=== PATIENT | female | born 1965 | race Caucasian/White ===

== ENCOUNTER 2022-09-05 09:41 | Emergency (ER) | payer MEDICARE, MEDICAID, OTHER, SELFPAY ==
--- NOTE | ~2022-09-05 | XR_ITS ---
EXAMINATION: XR SHOULDER, LEFT CLINICAL INFORMATION: Fall. COMPARISON: None available. TECHNIQUE: AP external rotation, Grashey, scapular Y, and axillary views of the left shoulder. FINDINGS: There is a transverse fracture through the left femoral neck with mild displacement. There is loss of glenohumeral joint space with subchondral cystic changes of the humeral head consistent with degenerative arthritic changes. There is soft tissue calcification superior to the humeral head likely old fracture fragment or dystrophic calcification. XR/XR shoulder LT min 2V IMPRESSION: 1. Transverse fracture left humeral neck with mild displacement. 2. Degenerative arthritic changes left glenohumeral joint. 3. There is soft tissue calcification superior to humeral head likely old fracture fragment or dystrophic calcification.
[2022-09-05 10:01] VITALS: BP 119/93; PULSE 112; RESP 18; TEMP 36.6; O2SAT 98; BMI 18.6
[2022-09-05] MEDS: Morphine Sulfate 4 MG/ML CARTRIDGE IM (11:52)
--- NOTE | 2022-09-05 13:29 | ED.EXTPRO ---
HPI - Extremity Problem General Chief complaint: Extremity Injury, Upper Stated complaint: L Shoulder Pain ? Fx S/P Fall 09/05/22 Time Seen by Provider: 09/05/22 11:26 History of Present Illness HPI Narrative: patient complains of left shoulder injury after a fall today, no other injury no, no muscle weakness no loss of sensation no head injury no neck pain no back pain no other extremity pains Related Data Previous Rx's Medication Instructions Recorded acetaminophen 500 mg tablet 1,000 mg PO QID PRN pain #30 tabs 09/05/22 morphine 15 mg immediate release 15 mg PO TID PRN pain #10 tabs 09/05/22 tablet Allergies Allergy/AdvReac Type Severity Reaction Status Date / Time Hard-shell nuts Allergy Unknown anaphylaxis Uncoded 09/05/22 10:01 IVP dye Allergy Unknown severe Uncoded 09/05/22 10:01 itching PMFSH Past Medical History Source: nursing notes reviewed Social History Social History Alcohol intake: unknown Smoked in Last 30 Days: Yes Use of substances other than those prescribed or required for medical reasons: No Advance Directives: No Advance Directives Information Provided: Yes Physical Exam Vital Signs: Vital Signs: Last Vital Signs Temp 99.1 F 09/05/22 14:07 Pulse 110 H 09/05/22 14:07 Resp 17 09/05/22 14:07 BP 98/81 09/05/22 14:07 Pulse Ox 100 09/05/22 14:07 O2 Del Method Room Air 09/05/22 14:07 BMI result Body Mass Index 18.6 general appearance is no acute distress Head is normocephalic atraumatic Neck is supple nontender The back has full range of motion Chest wall nontender Extremities the left shoulder is held in internal rotation it is swollen with mild ecchymosis and lots of tenderness around the proximal humerus and the left shoulder region, arm is neurovascular intact distal with no muscle weakness or loss of sensation, pulse is normal Other extremities normal Course Reevaluation(s) Reevaluation #1: x-ray showed a transverse fracture mildly displaced of the left humeral neck there were some arthritic changes as well Patient is given pain medicine and a sling and will follow with orthopedist for further evaluation of her fracture, she ambulated easily from the emergency room Medications Administered Discontinued Medications Generic Name Dose Route Start Last Admin Trade Name Freq PRN Reason Stop Dose Admin Morphine Sulfate 4 mg 09/05/22 11:33 09/05/22 11:52 Morphine Sulfate 4 Mg/Ml Cartridge IM 09/05/22 11:34 4 mg ONCE ONE Administration Protocol Morphine Sulfate 2 mg 09/05/22 13:45 09/05/22 13:55 Morphine Sulfate 2 Mg/Ml Cartridge IM 09/05/22 13:46 Not Given ONCE ONE Protocol Discharge Plan Discharge Clinical Impression: Fracture of left shoulder Patient Disposition: Home, Self-Care Additional Instructions: follow closely with orthopedist for evaluation of left shoulder fracture Return any time any worse condition or any concerns Prescriptions: New morphine 15 mg tablet 15 mg PO TID PRN (Reason: pain) Qty: 10 0RF Rx Instructions: Partial Fill upon patient request. acetaminophen 500 mg tablet 1,000 mg PO QID PRN (Reason: pain) Qty: 30 0RF Referrals: Pablo Alvarenga MD [Physician] - ( left shoulder fracture) Interventions: ED Discharge Assessment Last Done: 09/05/22 14:13 Discharge Date/Time: 09/05/22 14:13
[2022-09-05 14:07] VITALS: BP 98/81; PULSE 110; RESP 17; TEMP 37.3; O2SAT 100
== END 2022-09-05 14:13 | disposition home or self-care (01) ==
PROVIDERS: Emergency Provider Emergency Medicine Emergency Medical Services; PCP Family Medicine
DX: S42.202A Unspecified fracture of upper end of left humerus, initial encounter for closed fracture (principal); W19.XXXA Unspecified fall, initial encounter; Y93.9 Activity, unspecified; Y92.9 Unspecified place or not applicable; Y99.9 Unspecified external cause status
CPT/HCPCS: 73030; 96372; 99283; 99284; J2270

== ENCOUNTER 2023-04-16 06:46 | Emergency (ER) | payer MEDICARE, MEDICAID, SELFPAY ==
--- NOTE | ~2023-04-16 | XR_ITS ---
EXAMINATION: XR CHEST 2 VIEW XR THORACIC SPINE CLINICAL INFORMATION: Upper back pain. COMPARISON: Radiographs of left shoulder from 09/05/2022 TECHNIQUE: Chest, PA and lateral views Thoracic spine, 2 views FINDINGS: CHEST: Lungs are well expanded. Somewhat vague irregular opacity projects over the right anterior fourth rib on the frontal radiograph. However, since no upper lobe consolidation is seen on the lateral view, it is uncertain if this patient has an acute airspace disease process. No pleural effusion or pneumothorax. Cardiac silhouette is normal in size. The descending thoracic aorta is tortuous. The hilar contours are normal. There is intact anterior fusion hardware of the partially visualized cervical spine. Old fracture deformity of the left humeral neck is partially included in the [id number]. Old healed fracture of left lateral eighth rib. Cholecystectomy clips in the right upper quadrant the abdomen. THORACIC SPINE: There has been cement augmentation of the T9 vertebral body which appears to be chronically compressed, approximately 30% anterior height loss. Also, there appears to be chronic mild anterior compression deformity of the T8 vertebral body which also exhibits approximately 30% anterior height loss. There is minimal anterior height loss of other thoracic vertebra and hyperkyphosis of the degenerated thoracic spine. The osteophytes of the spine are largest in the visualized upper lumbar spine. No suspicious bone lesions. XR/XR thoracic spine 3V IMPRESSION: * An abnormal, irregular opacity projecting over the right anterior fourth rib on the frontal radiograph is difficult to further characterize. If the patient does not have any comparison chest imaging exams at other facilities, then consider chest CT follow-up for a more definitive assessment. Alternatively, if the patient clinically has pneumonia, then obtain PA/lateral CXR follow-up in 4-6 weeks to ensure resolution of this opacity. * Prior cement augmentation of T9 vertebral body. There appears to be chronic anterior height loss of T8 and T9 vertebra. No radiographic evidence of acute fractures.
--- NOTE | ~2023-04-16 | XR_ITS ---
EXAMINATION: XR CHEST 2 VIEW XR THORACIC SPINE CLINICAL INFORMATION: Upper back pain. COMPARISON: Radiographs of left shoulder from 09/05/2022 TECHNIQUE: Chest, PA and lateral views Thoracic spine, 2 views FINDINGS: CHEST: Lungs are well expanded. Somewhat vague irregular opacity projects over the right anterior fourth rib on the frontal radiograph. However, since no upper lobe consolidation is seen on the lateral view, it is uncertain if this patient has an acute airspace disease process. No pleural effusion or pneumothorax. Cardiac silhouette is normal in size. The descending thoracic aorta is tortuous. The hilar contours are normal. There is intact anterior fusion hardware of the partially visualized cervical spine. Old fracture deformity of the left humeral neck is partially included in the [id number]. Old healed fracture of left lateral eighth rib. Cholecystectomy clips in the right upper quadrant the abdomen. THORACIC SPINE: There has been cement augmentation of the T9 vertebral body which appears to be chronically compressed, approximately 30% anterior height loss. Also, there appears to be chronic mild anterior compression deformity of the T8 vertebral body which also exhibits approximately 30% anterior height loss. There is minimal anterior height loss of other thoracic vertebra and hyperkyphosis of the degenerated thoracic spine. The osteophytes of the spine are largest in the visualized upper lumbar spine. No suspicious bone lesions. XR/XR chest 2V IMPRESSION: * An abnormal, irregular opacity projecting over the right anterior fourth rib on the frontal radiograph is difficult to further characterize. If the patient does not have any comparison chest imaging exams at other facilities, then consider chest CT follow-up for a more definitive assessment. Alternatively, if the patient clinically has pneumonia, then obtain PA/lateral CXR follow-up in 4-6 weeks to ensure resolution of this opacity. * Prior cement augmentation of T9 vertebral body. There appears to be chronic anterior height loss of T8 and T9 vertebra. No radiographic evidence of acute fractures.
--- NOTE | ~2023-04-16 | NM_ITS ---
EXAMINATION: PULMONARY PERFUSION STUDY CLINICAL INFORMATION: Pleuritic back pain abnormality seen on x-ray. Unable to get CTA. Rule out pulmonary embolism. COMPARISON: No previous lung scan is available for comparison. Radiographs of the chest dated 04/16/[address] scan of the chest on the same date, the same date as this lung scan, are available for comparison. TECHNIQUE: Following the intravenous administration of 4.0 mCi Tc-99m MAA an 8-view perfusion study was performed using a dual detector gamma scintillation camera. No ventilation images were obtained. FINDINGS: Perfusion images: No segmental perfusion abnormalities are present. There is a nonsegmental region of moderately decreased activity present laterally in the base of the right upper lobe that appears to abut the lateral aspect of the horizontal fissure. Although the activity in this region is significantly decreased, it does not appear to be absent. No other perfusion abnormalities are present in either lung. The contemporaneous CT scan shows a groundglass airspace appearing opacity laterally in the base of the right upper lobe abutting the horizontal fissure that is very well matched to the perfusion abnormality described above. This is also visualized on the contemporaneous chest radiographs. NM/NM pul perfusion IMPRESSION: Very low probability of pulmonary embolism. There is a perfusion abnormality present in the lateral base of the right upper lobe that is well matched to opacities in this region on the contemporaneous CT scan. These findings are most consistent with a pneumonitis at this site. The CT abnormalities appear more extensive than the perfusion lung scan abnormality. Clinical correlation is recommended.
--- NOTE | ~2023-04-16 | CT_ITS ---
EXAMINATION: CT CHEST WITHOUT CONTRAST CLINICAL INFORMATION: Abnormal chest x-ray pleuritic back pain. COMPARISON: Chest x-ray performed earlier today at 8:42 AM TECHNIQUE: Multidetector volumetric CT imaging of the chest was done. Axial MIP volume rendering provided. Sagittal and coronal reformatted images were obtained. This CT examination was performed using dose optimization techniques as appropriate, variously including the following: *Automated exposure control *Adjustment of mA and/or kV according to patient size (this includes techniques or standardized protocols for targeted exams where dose is matched to indication/reason for exam; i.e. 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 LUNGS: The lungs are hyperinflated with mild groundglass opacity involving a significant segment of the right upper lobe posterior segment with patchy parenchymal scattered opacity within this abnormal segment more suggestive of infiltrative process. Rest of the lungs are expanded and clear. Mild atelectatic changes are seen in the lingula and both lung bases. MEDIASTINUM: Thyroid lobes are symmetrical and normal. The central trachea and the bronchi widely patent. The heart size and the great vessels are normal caliber. No abnormal size mediastinal or hilar lymph nodes seen. There is no pericardial effusion. The central trachea and the bronchi widely patent. CORONARY ARTERY CALCIFICATION: There is mild coronary artery calcification present. PLEURA: There is no pleural effusion. No pleural mass or thickening. AXILLA: No lymphadenopathy. UPPER ABDOMEN: Visualized liver, spleen, pancreas and bilateral adrenal glands are unremarkable. Gallbladder has been surgically removed. OSSEOUS STRUCTURES: There is mild exaggerated thoracic kyphosis with T9 cement augmentation of compression fracture. CT/CT chest wo IV con IMPRESSION: Hyperinflated lungs with right upper lobe 0% developing infiltrate. Mild atelectatic changes both lung bases and lingula. Fleischner guidelines were followed.
[2023-04-16 07:28] VITALS: BP 149/90; PULSE 98; RESP 16; TEMP 37.1; O2SAT 98; BMI 19.6
--- NOTE | 2023-04-16 07:52 | ECG_ITS ---
Test Reason : back pain Blood Pressure : / mmHG Vent. Rate : 089 BPM Atrial Rate : 089 BPM P-R Int : 120 ms QRS Dur : 078 ms QT Int : 388 ms P-R-T Axes : 108 145 127 degrees QTc Int : 472 ms Suspect limb lead reversal, interpretation assumes no reversal Normal sinus rhythm Right axis deviation Abnormal ECG No previous ECGs available Referred By: Shayna Santana Electronically Signed By:Lawrence Ramos
--- NOTE | 2023-04-16 07:59 | ED_ITS ---
HPI - Back Pain/Injury General Chief Complaint: Back Pain/Injury Stated Complaint: back pain Time Seen by Provider: 04/16/23 07:45 Source: patient, RN notes reviewed and old records reviewed Mode of arrival: ambulatory History of Present Illness HPI Narrative: 58-year-old female with a past medical history ACS, HTN, presenting to the ED complaining of upper back pain between shoulder blades x1 week. Admits PCP ordered outpatient x-rays which were done on 04/13 at [facility] however patient does not know results. Denies direct injury/trauma or fall. Admits to taking Tylenol and Soma at home without relief. Reports pain worse with movement/palpation & breathing. Denies chest pain/shortness of breath, incontinence/retention, dysuria/hematuria, weakness MD elicited complaint: back pain Related Data Previous Rx's Medication Instructions Recorded acetaminophen 500 mg tablet 1,000 mg (2 x 500 mg) PO QID PRN 09/05/22 pain #30 tabs morphine 15 mg immediate release 15 mg PO TID PRN pain #10 tabs 09/05/22 tablet acetaminophen 500 mg tablet 500 mg PO Q6H PRN fever or pain 04/16/23 (Tylenol Extra Strength) #14 tabs amoxicillin 500 mg-potassium 1 tab PO BID 7 days #14 tabs 04/16/23 clavulanate 125 mg tablet (Augmentin) azithromycin 250 mg tablet See Rx Instructions PO .COMPLEX #6 04/16/23 tabs lidocaine 5 % topical patch 1 patch topical DAILY PRN pain #30 04/16/23 (Lidoderm) ea morphine 15 mg immediate release 15 mg PO Q8H PRN pain (scale score 04/16/23 tablet 7-10) 3 days #6 tabs Allergies Allergy/AdvReac Type Severity Reaction Status Date / Time Hard-shell nuts Allergy Unknown anaphylaxis Uncoded 04/16/23 07:28 IVP dye Allergy Unknown severe Uncoded 04/16/23 07:28 itching Review of Systems 2 Review of Systems: Constitutional: No Fever, No Chills ENT/Mouth: No Ear Pain, No Nasal Congestion, No sore throat, No Rhinorrhea, No Swallowing Difficulty Cardiovascular: No Chest Pain, No SOB Respiratory: No Cough, No Sputum Gastrointestinal: No Nausea, No Vomiting, No Diarrhea, No Constipation, No Abdominal pain Genitourinary: No Dysuria, No Urinary Frequency, No Hematuria, No Urinary Incontinence/retention, No Flank Pain Musculoskeletal: + joint pain, No Myalgias, No Joint Swelling Skin: No Skin Lesions, No rash Neuro: No Weakness, No Numbness, No Paresthesias Yes all other systems are reviewed and are negative Constitutional: Constitutional: Reports as per [facility] Past Medical History Attestation statement: The following information was validated with the patient. Source: old records reviewed Onset Date is defined in the Problem List Problems that require an onset date and time if occurred within 24 hrs of arrival to the ED Aortic Dissection and Rupture; Neurologic impairment; Cardiopulmonary Arrest; Endotracheal Intubation; Insertion or Replacement of Mechanical Circulatory Assist Device Social History Social History Alcohol intake: unknown Smoked in Last 30 Days: Yes Use of substances other than those prescribed or required for medical reasons: No Advance Directives: No Advance Directives Information Provided: Yes Patient : Yes Physical Exam 2 Vital Signs: Vital Signs: Last Vital Signs Temp 98.2 F 04/16/23 09:39 Pulse 90 04/16/23 12:15 Resp 16 04/16/23 12:15 BP 149/92 H 04/16/23 12:15 Pulse Ox 100 04/16/23 12:15 O2 Del Method Room Air 04/16/23 12:15 BMI result Body Mass Index 19.6 Const: General: cooperative, healthy appearing and no acute distress O rientation/consciousness: patient oriented x3 Limitations: no limitations HEENT: Head: Yes normal to inspection and Yes atraumatic Ears: hearing grossly normal bilaterally General nose exam: Normal external nose present Face and sinus: Yes normal facial exam Eyes: General: appearance normal, both eyes and all related structures EOM: EOMs intact bilaterally Neck: Neck: Yes normal visual inspection and Yes no meningeal signs Chest: Chest palpation & inspection: normal inspection of the chest Resp: Effort & Inspection: normal respiratory effort and no respiratory distress Auscultation: clear to auscultation bilaterally Cardio: Rate: regular rate Heart sounds: S1 normal heart sound present and S2 normal heart sound present GI: Inspection: Yes normal to inspection Palpation (GI): Soft to palpation, nontender, no guarding and not rigid : General: Yes no CVA tenderness Back/Spine/Pelvis: Other: No midline cervical/thoracic/lumbar spinous tenderness/step-off or deformity. + bilateral thoracic paraspinal and MSK reproducible tenderness to palpation. No flail chest. No erythema/ecchymosis or rash. No crepitus Back: no CVA tenderness Skin: Rashes: no rashes Wounds: no wounds Neuro: Other: Strength intact throughout. No saddle anesthesia. Sensation intact to light touch. Neurovascular intact distally General: patient oriented x3, gait normal, tone normal, moves all extremities and no meningeal signs Cranial nerves: Yes CN's II-XII intact bilaterally Gait exam (Neuro): Normal gait present Motor exam (neuro): 5/5 motor strength present throughout Extrem: General: Yes normal to inspection Course Course Course Narrative: XR thoracic spine 3V/XR chest 2V IMPRESSION: * An abnormal, irregular opacity projecting over the right anterior fourth rib on the frontal radiograph is difficult to further characterize. If the patient does not have any comparison chest imaging exams at other facilities, then consider chest CT follow-up for a more definitive assessment. Alternatively, if the patient clinically has pneumonia, then obtain PA/lateral CXR follow-up in 4-6 weeks to ensure resolution of this opacity. * Prior cement augmentation of T9 vertebral body. There appears to be chronic anterior height loss of T8 and T9 vertebra. No radiographic evidence of acute fractures. > due to patient's pleuritic symptoms and need for CT will obtain CTA to r/o PE. Labs also ordered. -1224--unable to obtain CTA due to renal fxn & patients listed allergy > will obtain dry CT & NM study -no leukocytosis. Mildly anemic, no priors to compare. Patient w/known CKD (she does not know #'s), BUN 27, creatinine 1.69 (no priors to compare in our system) >> requested records from [facility] specifically asking for renal function however we were sent the same results twice which did not include BMP -potassium 5.3 > 10gm Lokelmo ordered 1505--CT chest wo IV con IMPRESSION: Hyperinflated lungs with right upper lobe 0% developing infiltrate. Mild atelectatic changes both lung bases and lingula. Fleischner guidelines were followed. > low suspicion for severe sepsis. Will obtain blood cultures & Give PO Abx NM pul perfusion IMPRESSION: Very low probability of pulmonary embolism. There is a perfusion abnormality present in the lateral base of the right upper lobe that is well matched to opacities in this region on the contemporaneous CT scan. These findings are most consistent with a pneumonitis at this site. The CT abnormalities appear more extensive than the perfusion lung scan abnormality. Clinical correlation is recommended. >> results discussed with patient, does not meet admission criteria at this time without hypoxia, ambulating with steady gait, symptoms have been for about 2 weeks. Feels comfortable and safe for discharge home with oral antibiotics and close follow-up Results discussed with patient including worrisome signs and symptoms and strict return precautions, and when to return to the emergency department. They verbalized understanding and feel safe for discharge at this time. Medications Administered Discontinued Medications Generic Name Dose Route Start Last Admin Trade Name Freq PRN Reason Stop Dose Admin Acetaminophen 650 mg 04/16/23 13:32 04/16/23 13:39 Acetaminophen 325 Mg Tablet PO 04/16/23 13:33 650 mg ONCE ONE Administration Fentanyl 25 mcg 04/16/23 11:33 04/16/23 12:14 Fentanyl Citrate/Pf 100 Mcg/2 Ml Vial IVPUSH 04/16/23 11:34 25 mcg ONCE ONE Administration Protocol Lidocaine 1 patch 04/16/23 08:02 04/16/23 08:27 Lidocaine 4 % Patch Adh..Patch TRANSDERMA 04/16/23 08:03 1 patch ONCE ONE Administration Protocol Morphine Sulfate 15 mg 04/16/23 08:02 04/16/23 08:27 Morphine Sulfate Immed Release 15 Mg Tablet PO 04/16/23 08:03 15 mg ONCE ONE Administration Morphine Sulfate 15 mg 04/16/23 13:32 04/16/23 13:39 Morphine Sulfate Immed Release 15 Mg Tablet PO 04/16/23 13:33 15 mg ONCE ONE Administration Medical Decision Making Medical Decision Making MDM Narrative: 58-year-old female with a past medical history ACS, HTN, presenting to the ED complaining of upper back pain between shoulder blades x1 week. On exam vital signs stable, NAD, nontoxic appearing, physical exam as noted above without midline spinous tenderness or red flag symptoms. Reproducible tenderness, and pain worse with movement. Concern for MSK pain/strain vs ? Pneumonia. Lower suspicion for PE at this time. Fracture Plan: Request [facility] x-ray records, chest x-ray, pain control, re-evaluate Please refer to course for remaining clinical decision making, interpretation of labs/imaging results, and discussions with consultants and/or family members. Differential Diagnosis Differential Diagnoses: The differential diagnosis associated with the presentation includes As above Admission/Observation Consideration of admission/observation: Escalation of care including admission/observation considered Lab Data MDM Lab Attestation statement: I reviewed the patient's lab results. 04/16/23 10:13 04/16/23 11:46 Labs: Lab Results 04/16/23 04/16/23 Range/Units 10:13 11:46 WBC 7.7 (4.8-10.8) X10*3/uL RBC 3.45 L (4.20-5.50) X10*6/uL Hgb 10.5 L (12.0-16.0) g/dl Hct 34.1 L (37.0-47.0) % MCV 98.8 H (80.0-98.0) fL MCH 30.4 (27.0-33.0) pg MCHC 30.8 L (31.0-35.0) g/dl RDW 15.1 (11.0-16.0) % Plt Count 246 (160-400) X10*3/uL MPV 10.8 (9.4-12.3) fL Immature Gran % (Auto) 0.5 H (0.0-0.4) % Neut % (Auto) 72.1 (45-73) % Lymph % (Auto) 16.7 L (20-40) % Owen % (Auto) 7.6 (2-11) % Eos % (Auto) 2.2 (0-4) % Baso % (Auto) 0.9 (0-2) % Lymph # (Auto) 1.3 (1.2-4.9) X10*3/uL Owen # (Auto) 0.6 (0.1-1.2) X10*3/uL Eos # (Auto) 0.2 (0.0-0.4) X10*3/uL Baso # (Auto) 0.1 (0.0-0.2) X10*3/uL Abs Immat Gran (auto) 0.04 H (0.00-0.03) X10*3/uL Absolute Neuts (auto) 5.5 (2.0-8.3) x10*3/uL Absolute Nucleated RBC 0.000 (0.0-0.012) X10*3/uL Nucleated RBC % (auto) 0.0 (0.0-0.2) /100WBC PT 10.7 L (11.1-13.3) SEC INR 0.9 (0.9-1.1) Sodium 142 (135-145) mmol/L Potassium 5.3 H (3.3-5.1) mmol/L Chloride 114 H (96-108) mmol/L Carbon Dioxide 20 L (22-29) mmol/L Anion Gap 13 (12-20) BUN 27 H (9-16) mg/dL Creatinine 1.69 H (0.5-1.4) mg/dL Estim Creat Clear Calc 25.4 Estimated GFR 31 Random Glucose 107 (60-115) mg/dL Calcium 9.8 (8.4-10.2) mg/dL Troponin I High Sens < 2.7 (<3.5-17.0) ng/L Independent Interpretation I performed an independent interpretation of an: EKG (My interpretation EKG normal sinus rhythm rate of 89. No STEMI. Artifact present. No previous to compare. Machine suspects limb lead reversal however verified with Nursing leads were not reversed ) and Plain X-Ray Radiology Impression Discussion of test interpretation with radiology: I have reviewed the radiologist's reading. External Record Review External record reviewed: Inpatient record, Office record, Outpatient record, Prior outpatient labs, Prior outpatient radiology, Primary care record and Outside ED record Tests considered The following testing was considered but not selected: As above Prescription Management I considered prescription management with: Pain Medication Social Determinants Patient?s care significantly limited by Social Determinants of Health including: Alcoholism and drug addiction in family Critical Care Time Critical Care Time Critical Care Time: Yes Total Critical Care Time: 35 Attestation: I have personally provided critical care time exclusive of time spent on separately billable procedures. Time includes review of lab data, radiology results, discussion with consultants, and monitoring for potential decompensation. Intervention performed as documented. Discharge Plan Discharge Clinical Impression: Pneumonia Patient Disposition: Home, Self-Care Instructions: Community Acquired Pneumonia (DC) Additional Instructions: You have a significant pneumonia in your right upper lobe. This is likely causing her pain Augmentin and azithromycin are antibiotics please take as prescribed Your potassium was mildly high, you were given medication to bring this down. Your kidney function is also elevated, I know you have chronic kidney disease but please have close follow-up with her doctor and Nephrology in regards to this Continue home prescribed medications In addition morphine is an opiate pain medication, take only when pain is severe for the next 3 days. In addition take Tylenol and use Lidoderm patches follow-up with her doctor If symptoms persist or worsen return to the emergency department Prescriptions: New morphine 15 mg tablet 15 mg PO Q8H PRN (Reason: pain (scale score 7-10)) 3 Days Qty: 6 0RF Rx Instructions: Partial Fill upon patient request. azithromycin 250 mg tablet See Rx Instructions .ROUTE .COMPLEX Qty: 6 0RF Rx Instructions: take 500 mg today (day 1), then 250 mg for 4 days (days 2-5) acetaminophen [Tylenol Extra Strength] 500 mg tablet 500 mg PO Q6H PRN (Reason: fever or pain) Qty: 14 0RF lidocaine [Lidoderm] 5 % adhesive patch,medicated 1 patch topical DAILY MDD remove after 12 hours PRN (Reason: pain) Qty: 30 0RF Rx Instructions: leave on most painful area for up to 12 hrs amoxicillin-pot clavulanate [Augmentin] 500-125 mg tablet 1 tab PO BID 7 Days Qty: 14 0RF No Action morphine 15 mg tablet 15 mg PO TID PRN (Reason: pain) Qty: 10 0RF Rx Instructions: Partial Fill upon patient request. acetaminophen 500 mg tablet 1,000 mg PO QID PRN (Reason: pain) Qty: 30 0RF Referrals: [facility] [Provider Group] Physician,Unknown J [Primary Care Provider] -
[2023-04-16] MEDS: Lidocaine 4 % Patch ADH..PATCH 1 PATCH TRANSDERMA (08:27)
[2023-04-16] MEDS: Morphine Sulfate Immed Release 15 MG TABLET PO ×2 (08:27→13:39)
--- NOTE | 2023-04-16 08:30 | PC.NURSE ---
medication administered per provider order. pt waiting to go to xray at this time.
--- NOTE | 2023-04-16 09:36 | PC.NURSE ---
pt verbalizing pain level stays a t a 9/10 despite medication administration. pt waiting on xray results at this time.
[2023-04-16 09:39] VITALS: BP 143/103; PULSE 91; RESP 16; TEMP 36.8; O2SAT 99
--- NOTE | 2023-04-16 10:18 | PC.NURSE ---
20gIV placed in the right AC - labs drawn and sent to lab. pt waiting for CTA at this time.
[2023-04-16 10:20] LABS: MANUAL DIFF FLAG NO
[2023-04-16 10:27] LABS: INTERNATIONAL NORM RATIO 0.9 (0.9-1.1); Prothrombin Time 10.7 SEC (11.1-13.3)
[2023-04-16 10:29] LABS: Basophils Absolute Auto 0.1 X10*3/uL (0.0-0.2); Basophils Percent Auto 0.9 % (0-2); Eosinophils Absolute Auto 0.2 X10*3/uL (0.0-0.4); Eosinophils Percent Auto 2.2 % (0-4); Hematocrit 34.1 % (37.0-47.0); Hemoglobin 10.5 g/dl (12.0-16.0); Imm Gran Abs Auto 0.04 X10*3/uL (0.00-0.03); Imm Gran Pct Auto 0.5 % (0.0-0.4); Lymphocytes Absolute Auto 1.3 X10*3/uL (1.2-4.9); Lymphocytes Percent Auto 16.7 % (20-40); Mean Corpuscular HGB Conc 30.8 g/dl (31.0-35.0); Mean Corpuscular Hemoglobin 30.4 pg (27.0-33.0); Mean Corpuscular Volume 98.8 fL (80.0-98.0); Mean Platelet Volume 10.8 fL (9.4-12.3); Monocytes Absolute Auto 0.6 X10*3/uL (0.1-1.2); Monocytes Percent Auto 7.6 % (2-11); Neutrophils Absolute Auto 5.5 x10*3/uL (2.0-8.3); Neutrophils Percent Auto 72.1 % (45-73); Platelet Count 246 X10*3/uL (160-400); Red Blood Count 3.45 X10*6/uL (4.20-5.50); Red Cell Distribution Width 15.1 % (11.0-16.0); White Blood Count 7.7 X10*3/uL (4.8-10.8)
[2023-04-16 10:51] LABS: Troponin-I High Sensitivity < 2.7 ng/L (<3.5-17.0)
[2023-04-16 12:08] LABS: Anion Gap 13 (12-20); Blood Urea Nitrogen 27 mg/dL (9-16); Calcium 9.8 mg/dL (8.4-10.2); Carbon Dioxide 20 mmol/L (22-29); Chloride 114 mmol/L (96-108); Creatinine Clr Calc Pharmacy 25.4; Estimated Glomerular Filt Rate 31; Glucose Random 107 mg/dL (60-115); Potassium 5.3 mmol/L (3.3-5.1); Sodium 142 mmol/L (135-145)
[2023-04-16] MEDS: fentaNYL citrate/PF 100 MCG/2 ML VIAL 25 MCG IVPUSH (12:14)
[2023-04-16 12:15] VITALS: BP 149/92; PULSE 90; RESP 16; O2SAT 100
--- NOTE | 2023-04-16 12:18 | PC.NURSE ---
vss and up to date. medication administered per provider order. pt still awaiting CTA at this time.
[2023-04-16] MEDS: Acetaminophen 325 MG TABLET 650 MG PO (13:39)
--- NOTE | 2023-04-16 13:41 | PC.NURSE ---
medication administered per provider order. pt transporting to [employer] at this time.
[2023-04-16] MEDS: Sodium Zirconium Cyclosilicate 10 GM POWD.PACK PO (15:47)
[2023-04-16] MEDS: Azithromycin 500 MG TABLET PO (15:47)
[2023-04-16] MEDS: Amoxicillin/Potassium Clav 500 MG TABLET PO (15:47)
== END 2023-04-16 16:08 | disposition home or self-care (01) ==
PROVIDERS: Physician Assistant; Emergency Provider Emergency Medicine
DX: J18.9 Pneumonia, unspecified organism (principal); N18.9 Chronic kidney disease, unspecified; D64.9 Anemia, unspecified
CPT/HCPCS: 36415; 71046; 71250; 72072; 78580; 80048; 84484; 85025; 85610; 87040; 93005; 96374; 99284; 99285; A9540; J3010

== ENCOUNTER → 2023-04-16 07:52 | Outpatient (BNV) | payer MEDICARE, MEDICAID, SELFPAY | PROVIDERS: Emergency Provider Emergency Medicine; Visit Provider Internal Medicine Cardiovascular Disease | DX: R94.31 Abnormal electrocardiogram [ECG] [EKG] (principal) | CPT/HCPCS: 93010 ==

== ENCOUNTER 2023-04-25 10:49 | Emergency (ER) | payer MEDICARE, MEDICAID, SELFPAY ==
--- NOTE | ~2023-04-25 | XR_ITS ---
EXAMINATION: XR CHEST CLINICAL INFORMATION: Question pneumonia COMPARISON: CT chest from 04/16/2023, chest radiograph from 05/2023 TECHNIQUE: 2 views of the chest were obtained. FINDINGS: Improvement in previously identified groundglass opacity in the right mid to upper lung field. No pneumothorax. Trachea is midline. Cardiac mediastinal silhouette is nonenlarged. No large pleural effusion. Lower cervical spinal hardware. Vertebral augmentation of T9. Chronic fracture deformity of the left humeral neck. Surgical clips right upper abdomen. Soft tissues are unremarkable. XR/XR chest 2V IMPRESSION: Improvement in previously identified groundglass opacity in the right mid to upper lung field.
[2023-04-25 11:28] VITALS: BP 142/94; PULSE 98; RESP 19; TEMP 36.6; O2SAT 99; BMI 18.9
--- NOTE | 2023-04-25 11:30 | ED_ITS ---
HPI - URI/Sore Throat General Chief Complaint: Back Pain/Injury Stated Complaint: upper back shoulder pain Time Seen by Provider: 04/25/23 17:01 Source: patient Mode of arrival: ambulatory Limitations: no limitations History of Present Illness HPI Narrative: 58 year old female with pmhx significant for ACS, HTN, CKD, MDD, etoh use disorder, opioid use disorder on suboxone presents to the ED for evaluation of upper back pain x10 days. Reports pain localized between her shoulder blades. No radiation. Denies injury, fall, or trauma to the back. Denies IVDU. Reports T9 fusion s/p fracture 4 years ago. No complications. She currently receives injections into her right upper back via [facility] however she has not contacted them regarding this pain over the last 10 days. Questionable historian. History is vague and story changes. Patient seen in ED 9 days ago for same symptoms. Unremarkable workup however there was concern for possible pneumonia, discharged home on 2 antibiotics. Reports taking these antibiotics as prescribed. Since visit in ED, pain between her shoulder blades has not improved. She has been taking morphine, Tylenol and using Lidoderm patches without relief. Related Data Previous Rx's Medication Instructions Recorded acetaminophen 500 mg tablet 1,000 mg (2 x 500 mg) PO QID PRN 09/05/22 pain #30 tabs morphine 15 mg immediate release 15 mg PO TID PRN pain #10 tabs 09/05/22 tablet acetaminophen 500 mg tablet 500 mg PO Q6H PRN fever or pain 04/16/23 (Tylenol Extra Strength) #14 tabs amoxicillin 500 mg-potassium 1 tab PO BID 7 days #14 tabs 04/16/23 clavulanate 125 mg tablet (Augmentin) azithromycin 250 mg tablet See Rx Instructions PO .COMPLEX #6 04/16/23 tabs lidocaine 5 % topical patch 1 patch topical DAILY PRN pain #30 04/16/23 (Lidoderm) ea morphine 15 mg immediate release 15 mg PO Q8H PRN pain (scale score 04/16/23 tablet 7-10) 3 days #6 tabs Allergies Allergy/AdvReac Type Severity Reaction Status Date / Time Hard-shell nuts Allergy Unknown anaphylaxis Uncoded 04/25/23 11:28 IVP dye Allergy Unknown severe Uncoded 04/25/23 11:28 itching Review of Systems 2 Review of Systems: Constitutional: No fever, chills, fatigue, night sweats, weight changes ENT/Mouth: No ear pain, hearing loss, nasal congestion, sinus pain, rhinorrhea, sore throat Eyes: No eye pain, swelling, redness, vision changes, discharge Cardio: No chest pain, palpitations, KNOTT, orthopnea, peripheral edema Pulm: No SOB, cough, sputum, wheezing, dyspnea, hemoptysis GI: No nausea, vomiting, hematemesis, abdominal pain, diarrhea, constipation, hematochezia, melena : No irregular bleeding, dysuria, frequency, urgency, hesitancy, hematuria, flank pain, urinary flow changes, urinary incontinence or retention MSK: +back pain, No neck pain, joint pain, myalgias Skin: No lesions, rashes Neuro: No weakness, numbness, paresthesias, LOC, dizziness, headache All other systems reviewed and are negative. [facility] Past Medical History Attestation statement: The following information was validated with the patient. Onset Date is defined in the Problem List Problems that require an onset date and time if occurred within 24 hrs of arrival to the ED Aortic Dissection and Rupture; Neurologic impairment; Cardiopulmonary Arrest; Endotracheal Intubation; Insertion or Replacement of Mechanical Circulatory Assist Device Social History Social History Alcohol intake: unknown Advance Directives: No Advance Directives Information Provided: Yes Physical Exam 2 Vital Signs: Vital Signs: Last Vital Signs Temp 98.3 F 04/25/23 18:01 Pulse 61 04/25/23 18:01 Resp 16 04/25/23 18:01 BP 116/56 L 04/25/23 18:01 Pulse Ox 95 04/25/23 18:01 O2 Del Method Room Air 04/25/23 18:01 BMI result Body Mass Index 18.9 Vital signs stable, afebrile Const: General: cooperative, healthy appearing, comfortable, no acute distress, alert, awake and Physically active Orientation/consciousness: p atient oriented x3 HEENT: Head: Yes normal to inspection, Yes normocephalic and Yes atraumatic Eyes: General: appearance normal, both eyes and all related structures P upils: Pinpoint pupils Neck: Other: + no cervical midline spinous tenderness or step-off deformity. Neck: Yes normal visual inspection, Yes full ROM and Yes no meningeal signs Resp: Effort & Inspection: normal respiratory effort Auscultation: clear to auscultation bilaterally Cardio: Jugular venous distension: no JVD Rate: regular rate Rhythm: r egular rhythm Peripheral pulses: Peripheral pulses 2+ throughout GI: Inspection: Yes normal to inspection and No visible pulsation Palpation (GI): Soft to palpation, nontender, no pulsatile masses and no aortic enlargement : General: Yes no CVA tenderness Back/Spine/Pelvis: Other: + mild midline thoracic tenderness to pa lpation without step off deformity. No palpable mass or fluctuance. No paraspinal muscle tenderness. Back: no CVA tenderness Thoracic/Lumbar Spine: straight leg raise negative bilaterally Skin: General skin exam: no rashes or lesions noted Neuro: Other: Strength 5/5 intact throughout.?No saddle anesthesia.? Sensation intact to light touch.?Neurovascular intact distally.? General: patient oriented x3, gait normal and no meningeal signs Gait exam (Neuro): Normal gait present Deep tendon reflexes (DTR's): Right patellar reflex intensity grade: 2+ and Left patellar reflex intensity grade: 2+ Pupils: Pinpoint: bilateral Extrem: General: Yes normal to inspection Course Course Course Narrative: c/o right upper back pain, 10/10, worse with inspiration. Using muscle relaxer and tylenol 'non-stop'. Last dose 8 am, 1000mg, no relief of pain. Lifting arm up helps with pain. Seen in this ED last saturday started on two antibiotics for question of pneumonia. Antibiotics completed. No improvement in pain. Vapes. Denies cough. Gets injection to right upper back at [facility]. Has not contacted them regarding symptoms. RME: NAD, A&Ox4, SIMENTAL x 4 w/good strength, LS CTA, HR RRR, tenderness right lateral Reevaluation(s) Reevaluation #1: 5259-- mildly anemic, chronic, likely secondary to etoh abuse. Chronic kidney disease. Patient taking flexeril likely contributing to this. No acute electrolyte abnormalities requiring intervention. Potassium corrected from visit 9 days ago. >> CXR shows improvement in previously identified ground-glass opacity in the right mid to upper lung arreola > pneumonia improving with oral antibiotics. T- spine does not show any acute abnormalities. No concern for fracture, disc herniation. 1800-- EKG showing normal sinus rhythm with a rate of 74 beats per minute, QRS 74, QT 428, no acute ischemic changes or ST elevations. No change from EKG obtained 9 days ago. Awaiting trop to r/o acs. > patient now sitting in bed comfortably texting on phone after receiving IV dilaudid. Reports decrease in pain. Awaiting add on labs. BP now soft, will continue to monitor. 1829-- Patient has received both dilaudid and valium for back pain while work up pending. She is now requesting more pain medication. I explained that we gave her a large dose of pain medication approximately 30 minutes ago which helped her pain and that more pain medication is not warranted at this time. After this conversation, patient ambulated with steady gait to the restroom. Patient converses with ED techs while lying comfortably in bed on her phone however when I go in to evaluate the patient, she begins writhing in pain. 1913-- troponin undetectable x2. sed rate slightly elevated to 37 however CRP wnl with no priors to compare to > low concern for acute inflammatory process, likely secondary to recent pneumonia. I do not have a concern for epidural abscess or other given stable vital signs, unremarkable exam, and length of symptoms. likely msk strain vs med seeking behavior. Her BP has now normalized and vitals are still stable. >> Patient lying in bed comfortably eating sand which. Informed patient of unremarkable work up results. She expresses frustration with the lack of explanation for pain. She received morphine on discharge last visit and states that this did not help her pain. I do not feel as though discharging her with more narcotic pain medication is warranted at this time. Offered to send lidocaine patches to pharmacy however patient is declining. Patient has remained stable throughout ED and BP has normalized. Discussed worrisome signs and symptoms of when to return. Patient is stable for discharge. Medications Administered Discontinued Medications Generic Name Dose Route Start Last Admin Trade Name Jeanine PRN Reason Stop Dose Admin Acetaminophen 650 mg 04/25/23 14:49 04/25/23 14:52 Acetaminophen 325 Mg Tablet PO 04/25/23 14:50 650 mg ONCE ONE Administration Diazepam 2 mg 04/25/23 17:45 04/25/23 18:02 Diazepam 2 Mg Tablet PO 04/25/23 17:46 2 mg ONCE ONE Administration Hydromorphone HCl 0.5 mg 04/25/23 17:11 04/25/23 17:29 Hydromorphone Hcl 0.5 Mg/0.5 Ml Syringe IVPUSH 04/25/23 17:12 0.5 mg ONCE ONE Administration Protocol Medical Decision Making Medical Decision Making [facility] Narrative: 58 year old female with pmhx significant for ACS, HTN, CKD, MDD, etoh use disorder, opioid use disorder on suboxone presents to the ED for evaluation of upper back pain x10 days. Patient hypertensive. Afebrile. Vital signs WNL. Patient ambulating with steady gait into room, and now standing hunched over exam bed groaning in pain. Occasionally slurring speech. Exam nonfocal. Lungs are CTA bilaterally. RRR. There is minimal midline thoracic spinous tenderness to palpation, no step-off deformity, no palpable masses or fluctuance. 2+ patellar DTRs bilaterally. 2+ DP/PT pulses bilaterally. No saddle anesthesia. Strength 5/5 throughout. Ambulating with steady gait. Concern for MSK sprain/strain, fracture, pneumonia. Lower suspicion for arrhythmia, ACS however will rule out. Unlikely PE. Unlikely cord compression, cauda equina, Guillain- Serena, epidural abscess. Plan for imaging, labs, and pain control. Differential Diagnosis Differential Diagnoses: The differential diagnosis associated with the presentation includes as above Admission/Observation Not indicated. Lab Data [facility] Lab Attestation statement: I reviewed the patient's lab results. as above. 04/25/23 13:20 04/25/23 13:20 Labs: Lab Results 04/25/23 04/25/23 Range/Units 13:20 18:11 WBC 8.9 (4.8-10.8) X10*3/uL RBC 3.24 L (4.20-5.50) X10*6/uL Hgb 9.8 L (12.0-16.0) g/dl Hct 32.4 L (37.0-47.0) % MCV 100.0 H (80.0-98.0) fL MCH 30.2 (27.0-33.0) pg MCHC 30.2 L (31.0-35.0) g/dl RDW 14.8 (11.0-16.0) % Plt Count 239 (160-400) X10*3/uL MPV 9.5 (9.4-12.3) fL Immature Gran % (Auto) 0.9 H (0.0-0.4) % Neut % (Auto) 68.2 (45-73) % Lymph % (Auto) 19.6 L (20-40) % Calhoun % (Auto) 5.7 (2-11) % Eos % (Auto) 4.8 H (0-4) % Baso % (Auto) 0.8 (0-2) % Lymph # (Auto) 1.7 (1.2-4.9) X10*3/uL Calhoun # (Auto) 0.5 (0.1-1.2) X10*3/uL Eos # (Auto) 0.4 (0.0-0.4) X10*3/uL Baso # (Auto) 0.1 (0.0-0.2) X10*3/uL Abs Immat Gran (auto) 0.08 H (0.00-0.03) X10*3/uL Absolute Neuts (auto) 6.1 (2.0-8.3) x10*3/uL Absolute Nucleated RBC 0.000 (0.0-0.012) X10*3/uL Nucleated RBC % (auto) 0.0 (0.0-0.2) /100WBC ESR 37 H (0-20) MM/HR Sodium 143 (135-145) mmol/L Potassium 3.8 (3.3-5.1) mmol/L Chloride 116 H (96-108) mmol/L Carbon Dioxide 21 L (22-29) mmol/L Anion Gap 10 L (12-20) BUN 25 H (9-16) mg/dL Creatinine 1.65 H (0.5-1.4) mg/dL Estim Creat Clear Calc 25.2 Estimated GFR 32 Random Glucose 94 (60-115) mg/dL Calcium 9.3 (8.4-10.2) mg/dL Total Bilirubin 0.1 (0.0-1.0) mg/dL AST 14 (5-31) U/L ALT 8 (0-31) U/L Alkaline Phosphatase 92 (39-117) U/L Troponin I High Sens < 2.7 < 2.7 (<3.5-17.0) ng/L C-Reactive Protein 0.45 (< or = 0.50) mg/dL Total Protein 7.2 (6.5-8.0) g/dL Albumin 4.0 (3.5-5.0) g/dL Ethyl Alcohol < 10 mg/dL Independent Interpretation I performed an independent interpretation of an: EKG and Plain X-Ray Interpretation: EKG showing normal sinus rhythm with a rate of 74 beats per minute, QRS 74, QT 428, no acute ischemic changes or ST elevations. No change from EKG obtained 9 days ago. I personally reviewed chest x-ray and agree with radiologist's interpretation. Radiology Impression Discussion of test interpretation with radiology: I have reviewed the radiologist's reading. Radiologist Impression: XR chest 2V IMPRESSION: Improvement in previously identified groundglass opacity in the right mid to upper lung field. External Record Review External record reviewed: Inpatient record Tests considered The following testing was considered but not selected: Considered obtaining CT scan of thoracic spine however there is no concern for epidural abscess and I do not believe it is warranted at this time. Prescription Management I considered prescription management with: Pain Medication and Other (Muscle relaxer) Chronic Conditions Patient?s care impacted by: Other (ACS, CKD, HTN) Social Determinants Patient?s care significantly limited by Social Determinants of Health including: Other Social Determinant of Health Critical Care Time Critical Care Time Critical Care Time: Yes Total Critical Care Time: 35 Attestation: Critical care time in the amount of 35 minutes has been provided to the patient in terms of direct patient care, frequent reevaluation with IV pain medication, review and interpretation of medical data and results, and management of potentially life-threatening conditions. This is all outside of any medical procedures. Discharge Plan Discharge Clinical Impression: Thoracic back pain, Pneumonia Patient Disposition: Home, Self-Care Instructions: Community Acquired Pneumonia (ED), Back Pain (ED) Additional Instructions: Your lab work today is normal. Your cardiac enzyme is normal. Your EKG is normal. Your chest x-ray shows improvement in pneumonia. Continue taking your prescribed antibiotics to completion and follow-up with your primary care provider for repeat chest x-ray to ensure resolution. Chest x-ray does not demonstrate fracture of the thoracic spine. Take tylenol and ibuprofen as needed. Please follow up with pain management at [facility] as you have established care with them. If you wish to establish care with a new pain management group, a referral has been provided to you. You may call him to make an appointment. They will not call you. If symptoms persist or worsen, you may return to the ED. Prescriptions: No Action azithromycin 250 mg tablet See Rx Instructions .ROUTE .COMPLEX Qty: 6 0RF Rx Instructions: take 500 mg today (day 1), then 250 mg for 4 days (days 2-5) acetaminophen [Tylenol Extra Strength] 500 mg tablet 500 mg PO Q6H PRN (Reason: fever or pain) Qty: 14 0RF lidocaine [Lidoderm] 5 % adhesive patch,medicated 1 patch topical DAILY MDD remove after 12 hours PRN (Reason: pain) Qty: 30 0RF Rx Instructions: leave on most painful area for up to 12 hrs amoxicillin-pot clavulanate [Augmentin] 500-125 mg tablet 1 tab PO BID 7 Days Qty: 14 0RF morphine 15 mg tablet 15 mg PO Q8H PRN (Reason: pain (scale score 7-10)) 3 Days Qty: 6 0RF Rx Instructions: Partial Fill upon patient request. morphine 15 mg tablet 15 mg PO TID PRN (Reason: pain) Qty: 10 0RF Rx Instructions: Partial Fill upon patient request. acetaminophen 500 mg tablet 1,000 mg PO QID PRN (Reason: pain) Qty: 30 0RF Referrals: [facility] [place] [facility] [Provider Group] Ayan Trotter MD [Primary Care Provider] - Interventions: ED Discharge Assessment Last Done: 04/25/23 19:27
[2023-04-25 13:24] LABS: MANUAL DIFF FLAG NO
[2023-04-25 13:25] LABS: Basophils Absolute Auto 0.1 X10*3/uL (0.0-0.2); Basophils Percent Auto 0.8 % (0-2); Eosinophils Absolute Auto 0.4 X10*3/uL (0.0-0.4); Eosinophils Percent Auto 4.8 % (0-4); Hematocrit 32.4 % (37.0-47.0); Hemoglobin 9.8 g/dl (12.0-16.0); Imm Gran Abs Auto 0.08 X10*3/uL (0.00-0.03); Imm Gran Pct Auto 0.9 % (0.0-0.4); Lymphocytes Absolute Auto 1.7 X10*3/uL (1.2-4.9); Lymphocytes Percent Auto 19.6 % (20-40); Mean Corpuscular HGB Conc 30.2 g/dl (31.0-35.0); Mean Corpuscular Hemoglobin 30.2 pg (27.0-33.0); Mean Platelet Volume 9.5 fL (9.4-12.3); Monocytes Absolute Auto 0.5 X10*3/uL (0.1-1.2); Monocytes Percent Auto 5.7 % (2-11); Neutrophils Absolute Auto 6.1 x10*3/uL (2.0-8.3); Neutrophils Percent Auto 68.2 % (45-73); Platelet Count 239 X10*3/uL (160-400); Red Blood Count 3.24 X10*6/uL (4.20-5.50); Red Cell Distribution Width 14.8 % (11.0-16.0); White Blood Count 8.9 X10*3/uL (4.8-10.8)
[2023-04-25 13:39] LABS: Alanine Aminotransferase 8 U/L (0-31); Alkaline Phosphatase 92 U/L (39-117); Anion Gap 10 (12-20); Aspartate Amino Transferase 14 U/L (5-31); Bilirubin Total 0.1 mg/dL (0.0-1.0); Blood Urea Nitrogen 25 mg/dL (9-16); Calcium 9.3 mg/dL (8.4-10.2); Carbon Dioxide 21 mmol/L (22-29); Chloride 116 mmol/L (96-108); Creatinine Clr Calc Pharmacy 25.2; Estimated Glomerular Filt Rate 32; Glucose Random 94 mg/dL (60-115); Potassium 3.8 mmol/L (3.3-5.1); Sodium 143 mmol/L (135-145); Total Protein 7.2 g/dL (6.5-8.0)
[2023-04-25] MEDS: Acetaminophen 325 MG TABLET 650 MG PO (14:52)
[2023-04-25 15:58] VITALS: BP 132/91; PULSE 90; RESP 16; TEMP 36.4; O2SAT 100
[2023-04-25 17:29] VITALS: RESP 16
[2023-04-25] MEDS: HYDROmorphone HCl 0.5 MG/0.5 ML SYRINGE IVPUSH (17:29)
--- NOTE | 2023-04-25 17:48 | ECG_ITS ---
Test Reason : BACK PAIN Blood Pressure : / mmHG Vent. Rate : 074 BPM Atrial Rate : 074 BPM P-R Int : 122 ms QRS Dur : 074 ms QT Int : 428 ms P-R-T Axes : 079 034 052 degrees QTc Int : 475 ms Normal sinus rhythm Normal ECG When compared with ECG of 16-APR-2023 08:08, QRS axis Shifted left T wave inversion no longer evident in Lateral leads Referred By: Elaina Patiño Electronically Signed By:CARLOS BURGESS MD
[2023-04-25 18:00] VITALS: BP 100/76; PULSE 79; RESP 16; TEMP 36.5; O2SAT 97
[2023-04-25 18:01] VITALS: BP 116/56; PULSE 61; RESP 16; TEMP 36.8; O2SAT 95
[2023-04-25] MEDS: diazePAM 2 MG TABLET PO (18:02)
--- NOTE | 2023-04-25 18:12 | MHC.EDTECH ---
Patient trop drawn and sent to lab ,vitals taken .
[2023-04-25 18:37] LABS: Troponin-I High Sensitivity < 2.7 ng/L (<3.5-17.0)
[2023-04-25 18:48] LABS: C Reactive Protein 0.45 mg/dL (< or = 0.50); Ethanol < 10 mg/dL
[2023-04-25 19:05] LABS: Troponin-I High Sensitivity < 2.7 ng/L (<3.5-17.0)
--- NOTE | 2023-04-25 19:07 | MHC.EDTECH ---
Pt requested food, PA said she can have food, pt given ozzy tangela, saltines, emmanuel crackers, and turkey sandwich
[2023-04-25 19:22] LABS: Erythrocyte Sedimentation Rate 37 MM/HR (0-20)
== END 2023-04-25 19:39 | disposition home or self-care (01) ==
PROVIDERS: Nurse Practitioner Family; Physician Assistant Medical; Emergency Provider Student in an Organized Health Care Education/Training Program; PCP Family Medicine
DX: M54.6 Pain in thoracic spine (principal); J18.9 Pneumonia, unspecified organism; Z79.899 Other long term (current) drug therapy
CPT/HCPCS: 36415; 71046; 80053; 80307; 84484; 85025; 85652; 86140; 93005; 96374; 99284; J1170

== ENCOUNTER → 2023-04-25 17:48 | Outpatient (BNV) | payer MEDICARE, MEDICAID, SELFPAY | PROVIDERS: Emergency Provider Student in an Organized Health Care Education/Training Program; PCP Family Medicine; Visit Provider Internal Medicine Cardiovascular Disease | DX: R94.31 Abnormal electrocardiogram [ECG] [EKG] (principal) | CPT/HCPCS: 93010 ==

== ENCOUNTER 2023-11-12 17:32 | Emergency (ER) | payer MEDICARE, MEDICAID, SELFPAY ==
--- NOTE | ~2023-11-12 | CT_ITS ---
EXAMINATION: CT head/brain wo IV con CLINICAL INFORMATION: Reason for Exam reyes COMPARISON: None. TECHNIQUE: Contiguous axial imaging was performed from the skull base to vertex without intravenous contrast. Sagittal and coronal reformatted images were obtained. This CT examination was performed using dose optimization techniques as appropriate, variously including the following: * Automated exposure control * Adjustment of mA and/or kV according to patient size (this includes techniques or standardized protocols for targeted exams where dose is matched to indication/reason for exam; i.e. extremities or head) Use of iterative reconstruction technique DLP: 516 mGy-cm FINDINGS: No acute osseous or soft tissue abnormality. The mastoid air cells and visualized portions of the paranasal sinuses are well aerated. There is no evidence of acute intracranial hemorrhage or territorial infarction. No abnormal mass effect or midline shift is seen. Rogers to white matter differentiation is well preserved. No extra-axial fluid collections are identified. No hydrocephalus. No significant volume loss. Patchy periventricular and deep white matter hypoattenuation is consistent with small vessel ischemic changes. CT/CT head/brain wo IV con IMPRESSION: No acute intracranial abnormality including hemorrhage, mass effect, hydrocephalus, or acute territorial edematous infarction.
--- NOTE | ~2023-11-12 | XR_ITS ---
EXAMINATION: XR CHEST CLINICAL INFORMATION: Shortness of breath COMPARISON: Chest xray on 04/25/23 TECHNIQUE: 2 views of the chest were obtained. FINDINGS: No significant abnormality is noted involving the heart, lungs, mediastinum, bony thorax or soft tissues. Prior vertebral augmentation in the mid thoracic spine. XR/XR chest 2V IMPRESSION: No acute disease.
[2023-11-12 17:39] VITALS: BP 148/90; PULSE 97; RESP 18; TEMP 36.7; O2SAT 97; BMI 19.2
--- NOTE | 2023-11-12 17:39 | ED.GENADULT ---
HPI - General Adult General Chief complaint: Dizziness Stated complaint: Unsteady gait/Multiple complaints Time Seen by Provider: 11/12/23 22:12 Related Data Previous Rx's ?Medication ?Instructions ?Recorded acetaminophen 500 mg tablet 1,000 mg (2 x 500 mg) PO QID PRN 09/05/22 pain #30 tabs morphine 15 mg immediate release 15 mg PO TID PRN pain #10 tabs 09/05/22 tablet acetaminophen 500 mg tablet 500 mg PO Q6H PRN fever or pain 04/16/23 (Tylenol Extra Strength) #14 tabs amoxicillin 500 mg-potassium 1 tab PO BID 7 days #14 tabs 04/16/23 clavulanate 125 mg tablet (Augmentin) azithromycin 250 mg tablet See Rx Instructions PO .COMPLEX #6 04/16/23 tabs lidocaine 5 % topical patch 1 patch topical DAILY PRN pain #30 04/16/23 (Lidoderm) ea morphine 15 mg immediate release 15 mg PO Q8H PRN pain (scale score 04/16/23 tablet 7-10) 3 days #6 tabs Allergies Allergy/AdvReac Type Severity Reaction Status Date / Time Hard-shell nuts Allergy Unknown anaphylaxis Uncoded 11/12/23 17:41 IVP dye Allergy Unknown severe Uncoded 11/12/23 17:41 itching PMFSH Social History Social History Alcohol intake: unknown Smoked in Last 30 Days: Yes Advance Directives: No Advance Directives Information Provided: No Patient : No Physical Exam ED Vital Signs: Vital Signs - 24 hr 11/12/23 17:39 11/12/23 18:48 11/12/23 20:26 Temperature 98.1 F 98.1 F 97.4 F Pulse Rate 97 100 86 Respiratory Rate 18 17 16 Blood Pressure 148/90 H 158/100 H 161/107 H Pulse Oximetry 97 100 97 Oxygen Delivery Method Room Air Room Air Room Air BMI result Body Mass Index 19.2 Course Course Course Narrative: This is a Rapid Medical Examination (RME) performed by Mela Khan PA-C in triage. Full HPI, ROS, assessment and treatment plan per primary provider in the Main ED. 58 yo female with history of CAD s/p stent on ASA, depression, anemia of chronic disease, CKD, chronic back pain on suboxone for evaluation of weakness, lethargy, shakiness, confusion, dizziness for the last 1 week. 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 no melena or BRPRB. History of requiring transfusion in the past. not on anticoagulation Plan: type & screen, labs, EKG, CXR Medications Administered Discontinued Medications Generic Name Dose Route Start Last Admin Trade Name Jovannyq PRN Reason Stop Dose Admin Diphenhydramine HCl 25 mg 11/12/23 23:23 11/12/23 23:37 Diphenhydramine Hcl 50 Mg/Ml Vial IVPUSH 11/12/23 23:24 25 mg ONCE ONE Administration Hydromorphone HCl 0.5 mg 11/12/23 23:24 11/12/23 23:37 Hydromorphone Hcl 0.5 Mg/0.5 Ml Syringe IVPUSH 11/12/23 23:25 0.5 mg ONCE ONE Administration Protocol Sodium Chloride 1,000 mls @ 999 mls/hr 11/12/23 23:30 11/13/23 00:51 Ns IV 11/13/23 00:30 Infused .Q1H1M SUSHANT Infusion Ceftriaxone Sodium 1 gm/ 50 mls @ 100 mls/hr 11/12/23 23:28 11/13/23 00:50 Sodium Chloride IV 11/12/23 23:57 Infused ONCE ONE Infusion Metoclopramide HCl 10 mg 11/12/23 23:23 11/12/23 23:37 Metoclopramide Hcl 10 Mg/2 Ml Vial IVPUSH 11/12/23 23:24 10 mg ONCE ONE Administration Medical Decision Making Lab Data 11/12/23 18:05 11/12/23 18:05 Labs: Lab Results 11/12/23 11/12/23 Range/Units 18:05 20:15 WBC 5.0 (4.8-10.8) X10*3/uL RBC 3.58 L (4.20-5.50) X10*6/uL Hgb 11.2 L (12.0-16.0) g/dl Hct 35.1 L (37.0-47.0) % MCV 98.0 (80.0-98.0) fL MCH 31.3 (27.0-33.0) pg MCHC 31.9 (31.0-35.0) g/dl RDW 16.9 H (11.0-16.0) % Plt Count 239 (160-400) X10*3/uL MPV 9.8 (9.4-12.3) fL Immature Gran % (Auto) 0.4 (0.0-0.4) % Neut % (Auto) 72.1 (45-73) % Lymph % (Auto) 19.2 L (20-40) % [place] % (Auto) 6.5 (2-11) % Eos % (Auto) 0.8 (0-4) % Baso % (Auto) 1.0 (0-2) % Lymph # (Auto) 1.0 L (1.2-4.9) X10*3/uL [place] # (Auto) 0.3 (0.1-1.2) X10*3/uL Eos # (Auto) 0.0 (0.0-0.4) X10*3/uL Baso # (Auto) 0.1 (0.0-0.2) X10*3/uL Abs Immat Gran (auto) 0.02 (0.00-0.03) X10*3/uL Absolute Neuts (auto) 3.6 (2.0-8.3) x10*3/uL Absolute Nucleated RBC 0.000 (0.0-0.012) X10*3/uL Nucleated RBC % (auto) 0.0 (0.0-0.2) /100WBC ESR 36 H (0-20) MM/HR Sodium 142 (135-145) mmol/L Potassium 4.0 (3.3-5.1) mmol/L Chloride 110 H (96-108) mmol/L Carbon Dioxide 22 (22-29) mmol/L Anion Gap 14 (12-20) BUN 24 H (9-16) mg/dL Creatinine 1.94 H (0.5-1.4) mg/dL Estim Creat Clear Calc 21.6 Estimated GFR 26 Random Glucose 106 (60-115) mg/dL Calcium 10.0 D (8.4-10.2) mg/dL Magnesium 1.9 (1.6-2.6) mg/dL Total Bilirubin 0.2 (0.0-1.0) mg/dL Direct Bilirubin < 0.2 (0.0-0.5) mg/dL AST 19 (5-31) U/L ALT 6 (0-31) U/L Alkaline Phosphatase 100 (39-117) U/L Troponin I High Sens < 2.7 (<3.5-17.0) ng/L C-Reactive Protein 0.29 (< or = 0.50) mg/dL B-Natriuretic Peptide 60 (<100) pg/mL Total Protein 7.6 (6.5-8.0) g/dL Albumin 4.2 (3.5-5.0) g/dL Urine Color Yellow Urine Appearance Clear Urine pH 5.5 (5.0-9.0) Ur Specific [place] 1.015 (1.005-1.025) Urine Protein 100 (2+) H (Neg-Trace) mg/dL Urine Glucose (UA) Negative (Negative) mg/dL Urine Ketones Negative (Negative) mg/dL Urine Blood Negative (Negative) Urine Nitrite Negative (Negative) Ur Leukocyte Esterase Moderate (2+) H (Negative) Urine RBC 0-2 (0-2) /HPF Urine WBC 21-50 H (0-5) /HPF Ur Squamous Epith Cells 0-2 (0-2) /HPF Urine Bacteria None Seen (None Seen) Hyaline Casts 0-2 (0-2) /LPF Blood Type O Positive Antibody Screen NEGATIVE Discharge Plan Discharge Clinical Impression: Headache Patient Disposition: Home, Self-Care Instructions: Acute Headache (ED) Prescriptions: No Action azithromycin 250 mg tablet See Rx Instructions .ROUTE .COMPLEX Qty: 6 0RF Rx Instructions: take 500 mg today (day 1), then 250 mg for 4 days (days 2-5) acetaminophen [Tylenol Extra Strength] 500 mg tablet 500 mg PO Q6H PRN (Reason: fever or pain) Qty: 14 0RF lidocaine [Lidoderm] 5 % adhesive patch,medicated 1 patch topical DAILY MDD remove after 12 hours PRN (Reason: pain) Qty: 30 0RF Rx Instructions: leave on most painful area for up to 12 hrs amoxicillin-pot clavulanate [Augmentin] 500-125 mg tablet 1 tab PO BID 7 Days Qty: 14 0RF morphine 15 mg tablet 15 mg PO Q8H PRN (Reason: pain (scale score 7-10)) 3 Days Qty: 6 0RF Rx Instructions: Partial Fill upon patient request. morphine 15 mg tablet 15 mg PO TID PRN (Reason: pain) Qty: 10 0RF Rx Instructions: Partial Fill upon patient request. acetaminophen 500 mg tablet 1,000 mg PO QID PRN (Reason: pain) Qty: 30 0RF Referrals: Ayan Trotter MD [Primary Care Provider] - 11/15/23 Print Language: Romanian
--- NOTE | 2023-11-12 17:41 | ECG_ITS ---
Test Reason : SOB Blood Pressure : / mmHG Vent. Rate : 090 BPM Atrial Rate : 090 BPM P-R Int : 124 ms QRS Dur : 080 ms QT Int : 366 ms P-R-T Axes : 051 012 043 degrees QTc Int : 447 ms Normal sinus rhythm Normal ECG When compared with ECG of 25-APR-2023 17:58, No significant change was found Referred By: Maria G Khan Electronically Signed By:Lawrence Ramos
[2023-11-12 18:11] LABS: MANUAL DIFF FLAG NO
[2023-11-12 18:13] LABS: Basophils Absolute Auto 0.1 X10*3/uL (0.0-0.2); Eosinophils Percent Auto 0.8 % (0-4); Hematocrit 35.1 % (37.0-47.0); Hemoglobin 11.2 g/dl (12.0-16.0); Imm Gran Abs Auto 0.02 X10*3/uL (0.00-0.03); Imm Gran Pct Auto 0.4 % (0.0-0.4); Lymphocytes Percent Auto 19.2 % (20-40); Mean Corpuscular HGB Conc 31.9 g/dl (31.0-35.0); Mean Corpuscular Hemoglobin 31.3 pg (27.0-33.0); Mean Platelet Volume 9.8 fL (9.4-12.3); Monocytes Absolute Auto 0.3 X10*3/uL (0.1-1.2); Monocytes Percent Auto 6.5 % (2-11); Neutrophils Absolute Auto 3.6 x10*3/uL (2.0-8.3); Neutrophils Percent Auto 72.1 % (45-73); Platelet Count 239 X10*3/uL (160-400); Red Blood Count 3.58 X10*6/uL (4.20-5.50); Red Cell Distribution Width 16.9 % (11.0-16.0)
[2023-11-12 18:27] LABS: Alanine Aminotransferase 6 U/L (0-31); Albumin Level 4.2 g/dL (3.5-5.0); Alkaline Phosphatase 100 U/L (39-117); Anion Gap 14 (12-20); Aspartate Amino Transferase 19 U/L (5-31); Bilirubin Direct < 0.2 mg/dL (0.0-0.5); Bilirubin Total 0.2 mg/dL (0.0-1.0); Blood Urea Nitrogen 24 mg/dL (9-16); Carbon Dioxide 22 mmol/L (22-29); Chloride 110 mmol/L (96-108); Creatinine Clr Calc Pharmacy 21.6; Estimated Glomerular Filt Rate 26; Glucose Random 106 mg/dL (60-115); Magnesium 1.9 mg/dL (1.6-2.6); Sodium 142 mmol/L (135-145); Total Protein 7.6 g/dL (6.5-8.0)
[2023-11-12 18:32] LABS: B Type Natriuretic Peptide 60 pg/mL (<100)
[2023-11-12 18:34] LABS: Troponin-I High Sensitivity < 2.7 ng/L (<3.5-17.0)
[2023-11-12 18:48] VITALS: BP 158/100; PULSE 100; RESP 17; TEMP 36.7; O2SAT 100
[2023-11-12 20:23] LABS: Appearance Urine Clear; Color Urine Yellow; Glucose Urine UA Negative (Negative); Leukocyte Esterase Urine Moderate (2+) (Negative); Nitrite Urine Negative (Negative); PH 5.5 (5.0-9.0); Specific Gravity - Urine 1.015 (1.005-1.025); UMIC TRIGGER UACC YES; Urine Blood Negative (Negative); Urine Ketones Negative (Negative); Urine Protein 100 (2+) mg/dL (Neg-Trace)
[2023-11-12 20:25] LABS: Bacteria Urine None Seen (None Seen); Hyaline Casts Urine 0-2 /LPF (0-2); RBC Urine 0-2 /HPF (0-2); Squamous Epithelial Cell Urine 0-2 /HPF (0-2); UACC Culture Trigger YES; WBC Urine 21-50 /HPF (0-5)
[2023-11-12 20:26] VITALS: BP 161/107; PULSE 86; RESP 16; TEMP 36.3; O2SAT 97
--- NOTE | 2023-11-12 21:25 | PC.NURSE ---
pt c/o of a headache, requests pain med, pt assisted to br, by family member. pt awaiting ED Physician
--- NOTE | 2023-11-12 23:01 | PC.NURSE ---
pt ring the call hayes, into room, pt c/o of a headache, and wants to know, when the doctor, will be in to see her. Explained to pt, I had infomed the doctor, that she wanted something for pain, and he stated, he would be in to see her as soon as he could.
--- NOTE | 2023-11-12 23:25 | ED_ITS ---
HPI - Dizziness General Chief Complaint: Dizziness Stated Complaint: Unsteady gait/Multiple complaints Time Seen by Provider: 11/12/23 22:12 History of Present Illness HPI Narrative: Patient is a 58-year-old female presents today with having headache, lightheaded weak. Patient was worry that her hemoglobin is 7 on . Has a history of chronic renal insufficiency. Feeling lightheaded feeling weak. Did not notice any bloody stool. No chest pain. No diaphoresis. Patient is from home. Feels weak everywhere. No abdominal pain. Positive increasing frequency. No history of VA in the past. No significant changes in medication. Related Data Previous Rx's ?Medication ?Instructions ?Recorded acetaminophen 500 mg tablet 1,000 mg (2 x 500 mg) PO QID PRN 09/05/22 pain #30 tabs morphine 15 mg immediate release 15 mg PO TID PRN pain #10 tabs 09/05/22 tablet acetaminophen 500 mg tablet 500 mg PO Q6H PRN fever or pain 04/16/23 (Tylenol Extra Strength) #14 tabs amoxicillin 500 mg-potassium 1 tab PO BID 7 days #14 tabs 04/16/23 clavulanate 125 mg tablet (Augmentin) azithromycin 250 mg tablet See Rx Instructions PO .COMPLEX #6 04/16/23 tabs lidocaine 5 % topical patch 1 patch topical DAILY PRN pain #30 04/16/23 (Lidoderm) ea morphine 15 mg immediate release 15 mg PO Q8H PRN pain (scale score 04/16/23 tablet 7-10) 3 days #6 tabs Allergies Allergy/AdvReac Type Severity Reaction Status Date / Time Hard-shell nuts Allergy Unknown anaphylaxis Uncoded 11/12/23 17:41 IVP dye Allergy Unknown severe Uncoded 11/12/23 17:41 itching Review of Systems 2 Review of Systems: Positive headache positive generalized malaise positive weakness no gross change in vision PMFSH Past Medical History Attestation statement: The following information was validated with the patient. Social History Social History Alcohol intake: unknown Smoked in Last 30 Days: Yes Advance Directives: No Advance Directives Information Provided: No Patient : No Physical Exam 2 Vital Signs: Vital Signs: Last Vital Signs Temp 97.4 F 11/12/23 20:26 Pulse 86 11/12/23 20:26 Resp 16 11/12/23 20:26 BP 161/107 H 11/12/23 20:26 Pulse Ox 97 11/12/23 20:26 O2 Del Method Room Air 11/12/23 20:26 BMI result Body Mass Index 19.2 Appearance: Alert. Oriented X3. No acute distress. Eyes: Pupils equal, round and reactive to light. ENT: Pharynx normal. Neck: Normal inspection. Neck supple. No lymph nodes noted. No crepitus CVS: Normal heart rate and rhythm. Pulses normal. Normal S1 and S2 Respiratory: No respiratory distress. Breath sounds normal. No Wheezing. No rales Abdomen: Soft and nontender. No rigidity. No distention. good BS x4 Skin: Skin warm and dry. Normal skin color. Normal skin turgor. Extremities: No lower extremity edema. Neurovascular intact to all extremities. No Lacerations. No Rash Neuro: Oriented X 3. No motor deficit. No sensory deficit. Moving all extermities. No slurred speech Medications Administered Discontinued Medications Generic Name Dose Route Start Last Admin Trade Name Freq PRN Reason Stop Dose Admin Diphenhydramine HCl 25 mg 11/12/23 23:23 11/12/23 23:37 Diphenhydramine Hcl 50 Mg/Ml Vial IVPUSH 11/12/23 23:24 25 mg ONCE ONE Administration Hydromorphone HCl 0.5 mg 11/12/23 23:24 11/12/23 23:37 Hydromorphone Hcl 0.5 Mg/0.5 Ml Syringe IVPUSH 11/12/23 23:25 0.5 mg ONCE ONE Administration Protocol Sodium Chloride 1,000 mls @ 999 mls/hr 11/12/23 23:30 11/13/23 00:51 Ns IV 11/13/23 00:30 Infused .Q1H1M SUSHANT Infusion Ceftriaxone Sodium 1 gm/ 50 mls @ 100 mls/hr 11/12/23 23:28 11/13/23 00:50 Sodium Chloride IV 11/12/23 23:57 Infused ONCE ONE Infusion Metoclopramide HCl 10 mg 11/12/23 23:23 11/12/23 23:37 Metoclopramide Hcl 10 Mg/2 Ml Vial IVPUSH 11/12/23 23:24 10 mg ONCE ONE Administration Medical Decision Making Medical Decision Making [facility] Narrative: Patient's hemoglobin is actually 11. There is no drop in hemoglobin. Patient's electrolytes are baseline. C reactive protein are negative. Unlikely to have temporal arteritis. I reviewed patient's CT scan of the head which was grossly negative for any acute evidence of bleeding. Patient's symptoms not consistent with meningitis. Creatinine elevated but this is baseline. Neurologically intact. Troponin is negative. BNP negative no evidence for congestive heart failure urine showed a questionable urinary tract infection. No previous culture documented. Will start patient on antibiotics. Patient's sed rate is less than 50. There is no evidence for temporal arteritis. Patient's symptoms seems to have improved. Neurologically intact in no distress. Patient was given migraine treatment with good results. Differential Diagnosis Differential Diagnoses: The differential diagnosis associated with the presentation includes Temporal arteritis, intracranial bleed, anemia Admission/Observation Consideration of admission/observation: Escalation of care including admission/observation considered Lab Data [facility] Lab Attestation statement: I reviewed the patient's lab results. 11/12/23 18:05 11/12/23 18:05 Labs: Lab Results 11/12/23 11/12/23 Range/Units 18:05 20:15 WBC 5.0 (4.8-10.8) X10*3/uL RBC 3.58 L (4.20-5.50) X10*6/uL Hgb 11.2 L (12.0-16.0) g/dl Hct 35.1 L (37.0-47.0) % MCV 98.0 (80.0-98.0) fL MCH 31.3 (27.0-33.0) pg MCHC 31.9 (31.0-35.0) g/dl RDW 16.9 H (11.0-16.0) % Plt Count 239 (160-400) X10*3/uL MPV 9.8 (9.4-12.3) fL Immature Gran % (Auto) 0.4 (0.0-0.4) % Neut % (Auto) 72.1 (45-73) % Lymph % (Auto) 19.2 L (20-40) % [place] % (Auto) 6.5 (2-11) % Eos % (Auto) 0.8 (0-4) % Baso % (Auto) 1.0 (0-2) % Lymph # (Auto) 1.0 L (1.2-4.9) X10*3/uL [place] # (Auto) 0.3 (0.1-1.2) X10*3/uL Eos # (Auto) 0.0 (0.0-0.4) X10*3/uL Baso # (Auto) 0.1 (0.0-0.2) X10*3/uL Abs Immat Gran (auto) 0.02 (0.00-0.03) X10*3/uL Absolute Neuts (auto) 3.6 (2.0-8.3) x10*3/uL Absolute Nucleated RBC 0.000 (0.0-0.012) X10*3/uL Nucleated RBC % (auto) 0.0 (0.0-0.2) /100WBC Sodium 142 (135-145) mmol/L Potassium 4.0 (3.3-5.1) mmol/L Chloride 110 H (96-108) mmol/L Carbon Dioxide 22 (22-29) mmol/L Anion Gap 14 (12-20) BUN 24 H (9-16) mg/dL Creatinine 1.94 H (0.5-1.4) mg/dL Estim Creat Clear Calc 21.6 Estimated GFR 26 Random Glucose 106 (60-115) mg/dL Calcium 10.0 D (8.4-10.2) mg/dL Magnesium 1.9 (1.6-2.6) mg/dL Total Bilirubin 0.2 (0.0-1.0) mg/dL Direct Bilirubin < 0.2 (0.0-0.5) mg/dL AST 19 (5-31) U/L ALT 6 (0-31) U/L Alkaline Phosphatase 100 (39-117) U/L Troponin I High Sens < 2.7 (<3.5-17.0) ng/L C-Reactive Protein 0.29 (< or = 0.50) mg/dL B-Natriuretic Peptide 60 (<100) pg/mL Total Protein 7.6 (6.5-8.0) g/dL Albumin 4.2 (3.5-5.0) g/dL Urine Color Yellow Urine Appearance Clear Urine pH 5.5 (5.0-9.0) Ur Specific [place] 1.015 (1.005-1.025) Urine Protein 100 (2+) H (Neg-Trace) mg/dL Urine Glucose (UA) Negative (Negative) mg/dL Urine Ketones Negative (Negative) mg/dL Urine Blood Negative (Negative) Urine Nitrite Negative (Negative) Ur Leukocyte Esterase Moderate (2+) H (Negative) Urine RBC 0-2 (0-2) /HPF Urine WBC 21-50 H (0-5) /HPF Ur Squamous Epith Cells 0-2 (0-2) /HPF Urine Bacteria None Seen (None Seen) Hyaline Casts 0-2 (0-2) /LPF Blood Type O Positive Antibody Screen NEGATIVE Radiology Impression Discussion of test interpretation with radiology: I have reviewed the radiologist's reading. Independent Historian Clinical information obtained from an independent historian. History obtained from or confirmed by: Other (Family) Chronic Conditions History of chronic renal insufficiency Social Determinants Patient?s care significantly limited by Social Determinants of Health including: Problems related to primary support group Discharge Plan Discharge Clinical Impression: Headache Patient Disposition: Home, Self-Care Instructions: Acute Headache (ED) Prescriptions: No Action azithromycin 250 mg tablet See Rx Instructions .ROUTE .COMPLEX Qty: 6 0RF Rx Instructions: take 500 mg today (day 1), then 250 mg for 4 days (days 2-5) acetaminophen [Tylenol Extra Strength] 500 mg tablet 500 mg PO Q6H PRN (Reason: fever or pain) Qty: 14 0RF lidocaine [Lidoderm] 5 % adhesive patch,medicated 1 patch topical DAILY MDD remove after 12 hours PRN (Reason: pain) Qty: 30 0RF Rx Instructions: leave on most painful area for up to 12 hrs amoxicillin-pot clavulanate [Augmentin] 500-125 mg tablet 1 tab PO BID 7 Days Qty: 14 0RF morphine 15 mg tablet 15 mg PO Q8H PRN (Reason: pain (scale score 7-10)) 3 Days Qty: 6 0RF Rx Instructions: Partial Fill upon patient request. morphine 15 mg tablet 15 mg PO TID PRN (Reason: pain) Qty: 10 0RF Rx Instructions: Partial Fill upon patient request. acetaminophen 500 mg tablet 1,000 mg PO QID PRN (Reason: pain) Qty: 30 0RF Referrals: Ayan Trotter MD [Primary Care Provider] - 11/15/23 Print Language: Turkmen
[2023-11-12] MEDS: 0.9 % Sodium Chloride 1,000 ML 999 ML IV (23:36)
[2023-11-12] MEDS: diphenhydrAMINE HCL 50 MG/ML VIAL 25 MG IVPUSH (23:37)
[2023-11-12] MEDS: HYDROmorphone HCl 0.5 MG/0.5 ML SYRINGE IVPUSH (23:37)
[2023-11-12] MEDS: Metoclopramide HCl 10 MG/2 ML VIAL IVPUSH (23:37)
[2023-11-12 23:45] LABS: C Reactive Protein 0.29 mg/dL (< or = 0.50)
[2023-11-13] MEDS: cefTRIAXone sodium 1 GM in 0.9 % Sodium Chloride 50 ML IV
--- NOTE | 2023-11-13 01:39 | PC.NURSE ---
pt resting quietly on stretcher, with eyes closed, resp with ease, no s/s of acute distres, will cont plan of care
[2023-11-13 01:55] LABS: Erythrocyte Sedimentation Rate 36 MM/HR (0-20)
[2023-11-13 02:07] VITALS: BP 155/104; PULSE 87; RESP 18; TEMP 36.3; O2SAT 97
[2023-11-13 02:14] VITALS: BP 155/104; PULSE 87; RESP 18; TEMP 36.3
== END 2023-11-13 02:21 | disposition home or self-care (01) ==
PROVIDERS: Physician Assistant; Emergency Provider Emergency Medicine Emergency Medical Services; PCP Family Medicine
DX: R42 Dizziness and giddiness (principal); R26.81 Unsteadiness on feet; R51.9 Headache, unspecified; R06.02 Shortness of breath; R53.1 Weakness; Z79.899 Other long term (current) drug therapy
CPT/HCPCS: 36415; 70450; 71046; 80048; 80076; 81001; 83735; 83880; 84484; 85025; 85652; 86140; 86850; 86900; 86901; 87086; 93005; 96361; 96374; 96375; 99285; J0696; J1170; J1200; J2765

== ENCOUNTER → 2023-11-12 17:41 | Outpatient (BNV) | payer MEDICARE, MEDICAID, SELFPAY | PROVIDERS: Emergency Provider Emergency Medicine Emergency Medical Services; PCP Family Medicine; Visit Provider Internal Medicine Cardiovascular Disease | DX: R06.02 Shortness of breath (principal) | CPT/HCPCS: 93010 ==

== ENCOUNTER 2025-04-05 09:39 | Emergency (ER) | payer MEDICARE, MEDICAID, SELFPAY ==
--- NOTE | ~2025-04-05 | CT_ITS ---
EXAMINATION: CT HEAD WITHOUT CONTRAST CLINICAL INFORMATION: Fall, anterior head trauma COMPARISON: November 12, 2023 TECHNIQUE: Contiguous axial imaging was performed from the skull base to vertex without intravenous administration of contrast. This CT examination was performed using dose optimization techniques as appropriate, variously including the following: *Automated exposure control *Adjustment of mA and/or kV according to patient size (this includes techniques or standardized protocols for targeted exams where dose is matched to indication/reason for exam; i.e. extremities or head) *Use of iterative reconstruction technique FINDINGS: There is no acute ischemic change. Moderate periventricular hypodensities are again seen. Small focal area of encephalomalacia in the far inferior lateral left frontal lobe is stable. There is no intracranial hemorrhage. There is no mass-effect or midline shift. Basal cisterns and ventricles are within normal limits for age/cerebral volume. Orbits are symmetrical and unremarkable. There is mild mucosal thickening in the right ethmoid air cells and maxillary sinus. There are no bony abnormalities. There is scalp laceration anteriorly, extending left from the midline, with adjacent edema/ecchymosis.. CT/CT head/brain wo IV con IMPRESSION: No acute intracranial abnormality. Left frontal scalp laceration. Chronic ischemic changes are similar to the prior. Electronically signed by: True Childs MD 04/05/2025 11:20 AM [facility]
--- NOTE | ~2025-04-05 | CT_ITS ---
EXAMINATION: CT FACIAL BONES WITHOUT CONTRAST CLINICAL INFORMATION: Fall with anterior head trauma and scalp laceration COMPARISON: CT head November 12, 2023 TECHNIQUE: Axial CT was performed through the frontal bones without contrast. Coronal and sagittal reformatted images were generated from the original axial data set. ALARA: The examination used one or more of the following radiation dose reduction techniques: Automated exposure control, iterative reconstruction, and/or adjustment of mA and/or KV. FINDINGS: There is mucosal thickening in the right ethmoid air cells and maxillary sinus. Severe degenerative changes are visible in the visualized cervical spine down to upper C4. Anterior plate and screws are present in C3-C4. Bony nasal septum deviates toward the right. No fracture is evident. CT/CT facial bones wo IV con IMPRESSION: No discrete facial bone fracture. Chronic appearing mucosal thickening in the right ethmoid air cells and maxillary sinus. Severe degenerative changes in the visualized upper cervical spine. Electronically signed by: True Childs MD 04/05/2025 11:25 AM [facility]
--- NOTE | ~2025-04-05 | XR_ITS ---
EXAMINATION: XR SHOULDER, RIGHT CLINICAL INFORMATION: fall shoulder pain COMPARISON: None available. TECHNIQUE: Two views of the right shoulder. FINDINGS: Mild acromioclavicular arthritis. Glenohumeral articulation is anatomic. Limited evaluation of the joint space on the provided view. No visible acute fracture or dislocation. No suspicious bony lesion. No abnormal soft tissue calcification. There is vertebroplasty cement in one of the thoracic vertebral bodies. XR/XR shoulder RT min 2V IMPRESSION: No radiographic evidence of acute fracture or dislocation. Mild acromioclavicular arthritis. Electronically signed by: Rogelio Upton MD 04/05/2025 11:44 AM [facility]
--- NOTE | ~2025-04-05 | XR_ITS ---
EXAMINATION: XR KNEE, RIGHT CLINICAL INFORMATION: fall right knee pain COMPARISON: None available. TECHNIQUE: Four views of the right knee. FINDINGS: No visible acute fracture or dislocation. No significant effusion. Alignment is anatomic. Joint spaces are preserved. No abnormal soft tissue calcification. Bone mineralization is decreased XR/XR knee RT 4V IMPRESSION: No radiographic evidence of acute fracture. Electronically signed by: Rogelio Upton MD 04/05/2025 11:46 AM [facility]
--- NOTE | ~2025-04-05 | CT_ITS ---
EXAMINATION: CT CERVICAL SPINE WITHOUT CONTRAST CLINICAL INFORMATION: Fall, midline pain COMPARISON: None available. TECHNIQUE: Axial imaging. Sagittal and coronal reconstructions. This CT examination was performed using dose optimization techniques as appropriate, variously including the following: *Automated exposure control *Adjustment of mA and/or kV according to patient size (this includes techniques or standardized protocols for targeted exams where dose is matched to indication/reason for exam; i.e. extremities or head) *Use of iterative reconstruction technique FINDINGS: Craniocervical and atlantoaxial articulation is maintained. Postsurgical changes with anterior spinal fusion hardware spanning C3-C5. Hardware is intact with no evidence of suspicious perihardware lucency. There is ankylosis at these disc spaces. Ankylosis present at C6-7. No evidence of acute fracture or traumatic subluxation. Degeneration at the articulation of the dens and the anterior arch of C1. Disc degeneration at C2-3, C7-T1. Multilevel facet degeneration. No prevertebral soft tissue swelling. No suspicious thyroid findings. No suspicious findings in the visualized lung apices. No pneumothorax seen. CT/CT cervical spine wo IV con IMPRESSION: * No CT evidence of acute fracture or traumatic subluxation. * Status post spinal fusion at C3-5. Intact hardware. No findings suggest hardware complications. * Cervical spondylosis as above. Fleischner guidelines were followed. Electronically signed by: Rogelio Upton MD 04/05/2025 11:18 AM [facility]
[2025-04-05 09:49] VITALS: BP 131/70; PULSE 90; RESP 16; TEMP 36.6; O2SAT 99; BMI 18.2
[2025-04-05 10:00] VITALS: BP 128/76; RESP 18; O2SAT 97
--- NOTE | 2025-04-05 10:01 | ED_ITS ---
HPI - Head Injury General Chief complaint: Head Injury Stated complaint: Fall- Hit Front Of Head- Bleeding Time Seen by Provider: 04/05/25 09:56 Source: patient and other (friend) Mode of arrival: ambulatory Limitations: no limitations History of Present Illness ED Provider: ELAINA PATIÑO PA-C HPI Narrative: 59 year old female presents to the ED today following a mechanical fall this morning. Patient states that she was walking her dog outside around 0700 today when she tripped down the last concrete step of her yard, causing her to fall forward and strike her forehead on the ground. No LOC. No thinners. Takes a baby aspirin daily. Denies any symptoms preceding the fall. He neighbor saw her fall and came over to assist her up. She was able to then ambulate with her cane into her home. She called her friend who then drove her to the ED for evaluation. At present, she complains of neck pain and forehead pain, where she is noted to have a scalp laceration that was dressed by her friend prior to arrival. She also reports chronic right shoulder and right knee pain, pain not worse since fall. Denies falling onto her shoulder or her knee. She is unsure of her tetanus status. Denies headache, dizziness, chest pain, palpitations, sob, back pain, numbness/tingling/weakness of the extremities, abd pain, N/V/D, urinary sx. Related Data Previous Rx's ?Medication ?Instructions ?Recorded acetaminophen 500 mg tablet 1,000 mg (2 x 500 mg) PO Q ID PRN 09/05/22 pain #30 tabs morphine 15 mg immediate release 15 mg PO TID PRN pain #10 tabs 09/05/22 tablet acetaminophen 500 mg tablet 500 mg PO Q6H PRN fever or pain 04/16/23 (Tylenol Extra Strength) #14 tabs amoxicillin 500 mg-potassium 1 tab PO BID 7 days #14 t abs 04/16/23 clavulanate 125 mg tablet (Augmentin) azithromycin 250 mg tablet See Rx Instructions PO .COM PLEX #6 04/16/23 tabs lidocaine 5 % topical patch 1 patch topical DAILY PRN pain #30 04/16/23 (Lidoderm) ea morphine 15 mg immediate release 15 mg PO Q8H PRN pain (scale score 04/16/23 tablet 7-10) 3 days #6 tabs Allergies Allergy/AdvReac Type Severity Reaction Status Date / Time Hard-shell nuts Allergy Unknown anaphylaxis Uncoded 04/05/25 09:55 IVP dye Allergy Unknown severe Uncoded 04/05/25 09:55 itching Review of Systems 2 Review of Systems: Yes all other systems are reviewed and are negative [facility] Past Medical History Attestation statement: The following information was validated with the patient. Source: old records reviewed and nursing notes reviewed Social History Social History Alcohol intake: unknown Advance Directives: Yes Advance Directives Information Provided: No Advance Directives on File: No Physical Exam 2 Vital Signs: Vital Signs: Last Vital Signs Temp 97.8 F 04/05/25 13:02 Pulse 88 04/05/25 13:02 Resp 18 04/05/25 13:02 BP 128/76 04/05/25 13:02 Pulse Ox 97 04/05/25 13:02 O2 Del Method Room Air 04/05/25 13:02 BMI result Body Mass Index 18.2 vital signs stable General: Well appearing, in no acute distress. Skin: +see photo of forehead below. there is a triangular shaped laceration noted to mid forehead measuring approx 2cm on each side. superficial, no involvement of galea. no active bleeding. no surrounding hematoma, no palpable deformity/step off/ skull fracture. Head: +see above. No raccoon eyes, wasserman sign. EENT: Hearing is intact b/l. Conjunctiva clear. PERRLA. EOM intact. Moist mucous membranes.? No septal hematoma, no epistaxis, no nasal deformity. Neck: Patient noted to have midline C-spine tenderness, more so over C4/C5 region. Placed in cervical collar on arrival. Cardiac: Chest wall symmetric. RRR Lungs: Normal respiratory effort without accessory muscle use. CTA bilaterally Abdomen: Soft, non-tender, non-distended. No rebound tenderness or guarding. Positive BS x4. Back: No midline spinous or paraspinal tenderness. No step off deformity. Ext: +moving all extremities without reported pain Neuro: AOx3. Normal speech. NIH 0. Strength 5/5 intact throughout. No saddle anesthesia. Sensation intact to light touch. NV intact distally. Ambulating with steady gait with cane. Course Course Course Narrative: 1019 -- patient has ttp along midline c spine, no step off. placed in cervical collar. > imaging ordered. 1250 -- CT head/face/C-spine unremarkable. X-ray shoulder and knee without acute fracture. Laceration thoroughly cleansed with saline/iodine. Anesthetized with 10 mL of lidocaine. Laceration repaired with 8 absorbable sutures after obtaining verbal consent from patient. No bleeding noted. Steri-Strips applied. Tetanus updated. Tylenol given. Medicated with home clonazepam and oxycodone, she takes this twice daily for her back pain however did not take it prior to arrival this morning. She is stable at this time. All results discussed with patient. Her friend, Lavern, is at bedside and will be transporting patient home. Patient has remained stable throughout ED visit today. Discussed worrisome signs and symptoms and when to return to the ED. All questions answered at this time. Patient is agreeable with disposition and stable for discharge. Medications Administered Discontinued Medications Generic Name Dose Route Start Last Admin Trade Name Jovannyq PRN Reason Stop Dose Admin Acetaminophen 975 mg 04/05/25 11:20 04/05/25 11:41 Acetaminophen 325 Mg Tablet PO 04/05/25 11:21 975 mg ONCE ONE Administration Clonazepam 1 mg 04/05/25 10:18 04/05/25 10:58 Clonazepam 1 Mg Tablet PO 04/05/25 10:19 1 mg ONCE ONE Administration Diphtheria/Tetanus/Acell Pertussis 0.5 ml 04/05/25 10:19 04/05/25 10:58 Diphth,Pertus(Acell),Tet Adult 0.5 Ml Syringe IM 04/05/25 10:20 0.5 ml .ONCE ONE Administration Lidocaine HCl 10 ml 04/05/25 10:18 04/05/25 10:59 Lidocaine Hcl 1 % Mpf 5 Ml Vial INFILTRATI 04/05/25 10:19 10 ml ONCE ONE Administration Oxycodone HCl 5 mg 04/05/25 12:01 04/05/25 12:07 Oxycodone Hcl Immed Release 5 Mg Tablet PO 04/05/25 12:02 5 mg ONCE ONE Administration Medical Decision Making Medical Decision Making MDM Narrative: 59 year old female presents to the ED today following a mechanical fall this morning. vital signs stable. on exam, triangular shaped laceration noted to mid forehead measuring approx 2cm on each side. superficial, no involvement of galea. no active bleeding. no surrounding hematoma, no palpable deformity/step off/ skull fracture. No raccoon eyes, wasserman sign. NIH 0. Patient noted to have midline C-spine tenderness, more so over C4/C5 region. Placed in cervical collar on arrival. Differential diagnosis includes head injury, concussion, intracranial bleed, scalp laceration, scalp hematoma, cervical fracture, cervical MSK sprain/strain Plan for imaging, laceration repair, Tdap, pain control, re-evaluation. Differential Diagnosis Differential Diagnoses: The differential diagnosis associated with the presentation includes as above. Admission/Observation not indicated. Independent Interpretation I performed an independent interpretation of an: CT Scan Interpretation: CT head without intracranial bleed CT cervical spine without fracture CT facial bones without fracture X-ray right shoulder without fracture X-ray right knee without fracture Radiology Impression Discussion of test interpretation with radiology: I have reviewed the radiologist's reading. Radiologist Impression: Procedure(s): CT head/brain wo IV con Accession Number(s): [id number] cc: Ayan Trotter MD; Elaina Patiño~ Report Number: [id number]: Total DLP = 577.00 mGy-cm Reason for Exam: fall anterior head strike EXAMINATION: CT HEAD WITHOUT CONTRAST CLINICAL INFORMATION: Fall, anterior head trauma COMPARISON: November 12, 2023 TECHNIQUE: Contiguous axial imaging was performed from the skull base to vertex without intravenous administration of contrast. This CT examination was performed using dose optimization techniques as appropriate, variously including the following: *Automated exposure control *Adjustment of mA and/or kV according to patient size (this includes techniques or standardized protocols for targeted exams where dose is matched to indication/reason for exam; i.e. extremities or head) *Use of iterative reconstruction technique FINDINGS: There is no acute ischemic change. Moderate periventricular hypodensities are again seen. Small focal area of encephalomalacia in the far inferior lateral left frontal lobe is stable. There is no intracranial hemorrhage. There is no mass-effect or midline shift. Basal cisterns and ventricles are within normal limits for age/cerebral volume. Orbits are symmetrical and unremarkable. There is mild mucosal thickening in the right ethmoid air cells and maxillary sinus. There are no bony abnormalities. There is scalp laceration anteriorly, extending left from the midline, with adjacent edema/ecchymosis.. CT/CT head/brain wo IV con IMPRESSION: No acute intracranial abnormality. Left frontal scalp laceration. Chronic ischemic changes are similar to the prior. Electronically signed by: True Childs MD 04/05/2025 11:20 AM EST RP Procedure(s): CT facial bones wo IV con Accession Number(s): [id number] cc: Ayan Trotter MD; Elaina Patiño~ Report Number: [id number]: Total DLP = 189.00 mGy-cm Reason for Exam: fall anterior head strike EXAMINATION: CT FACIAL BONES WITHOUT CONTRAST CLINICAL INFORMATION: Fall with anterior head trauma and scalp laceration COMPARISON: CT head November 12, 2023 TECHNIQUE: Axial CT was performed through the frontal bones without contrast. Coronal and sagittal reformatted images were generated from the original axial data set. ALARA: The examination used one or more of the following radiation dose reduction techniques: Automated exposure control, iterative reconstruction, and/or adjustment of mA and/or KV. FINDINGS: There is mucosal thickening in the right ethmoid air cells and maxillary sinus. Severe degenerative changes are visible in the visualized cervical spine down to upper C4. Anterior plate and screws are present in C3-C4. Bony nasal septum deviates toward the right. No fracture is evident. CT/CT facial bones wo IV con IMPRESSION: No discrete facial bone fracture. Chronic appearing mucosal thickening in the right ethmoid air cells and maxillary sinus. Severe degenerative changes in the visualized upper cervical spine. Electronically signed by: True Childs MD 04/05/2025 11:25 AM EST RP Procedure(s): CT cervical spine wo IV con Accession Number(s): [id number] cc: Ayan Trotter MD; Elaina Patiño~ Report Number: [id number]: Total DLP = 223.00 mGy-cm Reason for Exam: fall midline c spine pain hx cervical surgery EXAMINATION: CT CERVICAL SPINE WITHOUT CONTRAST CLINICAL INFORMATION: Fall, midline pain COMPARISON: None available. TECHNIQUE: Axial imaging. Sagittal and coronal reconstructions. This CT examination was performed using dose optimization techniques as appropriate, variously including the following: *Automated exposure control *Adjustment of mA and/or kV according to patient size (this includes techniques or standardized protocols for targeted exams where dose is matched to indication/reason for exam; i.e. extremities or head) *Use of iterative reconstruction technique FINDINGS: Craniocervical and atlantoaxial articulation is maintained. Postsurgical changes with anterior spinal fusion hardware spanning C3-C5. Hardware is intact with no evidence of suspicious perihardware lucency. There is ankylosis at these disc spaces. Ankylosis present at C6-7. No evidence of acute fracture or traumatic subluxation. Degeneration at the articulation of the dens and the anterior arch of C1. Disc degeneration at C2-3, C7-T1. Multilevel facet degeneration. No prevertebral soft tissue swelling. No suspicious thyroid findings. No suspicious findings in the visualized lung apices. No pneumothorax seen. CT/CT cervical spine wo IV con IMPRESSION: * No CT evidence of acute fracture or traumatic subluxation. * Status post spinal fusion at C3-5. Intact hardware. No findings suggest hardware complications. * Cervical spondylosis as above. Fleischner guidelines were followed. Electronically signed by: Rogelio Upton MD 04/05/2025 11:18 AM EST RP Procedure(s): XR knee RT 4V Accession Number(s): [id number] cc: Ayan Trotter MD; Elaina Patiño~ Reason for Exam: fall right knee pain EXAMINATION: XR KNEE, RIGHT CLINICAL INFORMATION: fall right knee pain COMPARISON: None available. TECHNIQUE: Four views of the right knee. FINDINGS: No visible acute fracture or dislocation. No significant effusion. Alignment is anatomic. Joint spaces are preserved. No abnormal soft tissue calcification. Bone mineralization is decreased XR/XR knee RT 4V IMPRESSION: No radiographic evidence of acute fracture. Electronically signed by: Rogelio Upton MD 04/05/2025 11:46 AM EST RP Procedure(s): XR shoulder RT min 2V Accession Number(s): [id number] cc: Ayan Trotter MD; Elaina Patiño~ Reason for Exam: fall shoulder pain EXAMINATION: XR SHOULDER, RIGHT CLINICAL INFORMATION: fall shoulder pain COMPARISON: None available. TECHNIQUE: Two views of the right shoulder. FINDINGS: Mild acromioclavicular arthritis. Glenohumeral articulation is anatomic. Limited evaluation of the joint space on the provided view. No visible acute fracture or dislocation. No suspicious bony lesion. No abnormal soft tissue calcification. There is vertebroplasty cement in one of the thoracic vertebral bodies. XR/XR shoulder RT min 2V IMPRESSION: No radiographic evidence of acute fracture or dislocation. Mild acromioclavicular arthritis. Electronically signed by: Rogelio Upton MD 04/05/2025 11:44 AM EST Independent Historian Clinical information obtained from an independent historian. History obtained from or confirmed by: Friend External Record Review External record reviewed: Inpatient record Prescription Management I considered prescription management with: Pain Medication Social Determinants Patient?s care significantly limited by Social Determinants of Health including: Other Social Determinant of Health Procedures Laceration Laceration 1: Site: scalp Size (cm): 2 Description: irregular Depth: simple, single layer Local Anesthetic: lidocaine 1% Amount of anesthesia used (mL): 10 Pre-repair: wound explored, irrigated extensively and deep structures intact Skin layer closed with: other (absorbable) Size (cm): 6-0 Number of sutures: 8 Technique: simple, interrupted Critical Care Time Critical Care Time Critical Care Time: No Discharge Plan Discharge Clinical Impression: Closed head injury, Forehead laceration, Concussion without loss of consciousness Patient Disposition: Home, Self-Care Instructions: Laceration (ED), Head Injury (ED), Skin Adhesive Care (ED), Care For Your Absorbable Stitches (ED) Additional Instructions: You have been evaluated in the Emergency Department today for a laceration to your forehead. Your laceration was repaired in the ED with 8 absorbable sutures.?You do not have to have these removed. Your tetanus vaccination was also updated and will be valid for 5-10 years. Please keep the area surrounding the laceration clean and dry. Do not get the area wet for 24 hours. After 24 hours, you may clean the area with a non-scented soap and pat to dry. Please keep the area out of the sunlight for the next 6 months to help prevent scarring.? If you develop redness or swelling at the site of your laceration or note any discharge/ fluid coming from the laceration, please come back to the ER for a wound check. I recommend you take tylenol 650mg every 6 hours as needed for pain. The CT scans of your head, neck, and face do not demonstrate fracture. The xrays of your right knee and right shoulder do not demonstrate fracture. You were evaluated in the ED today following a head injury. The CT scan of your head does not demonstrate intracranial bleed or skull fracture. You may have a concussion. See home care instructions regarding concussion protocol. Treatment for this is brain rest. Please limit screen time (i.e phone, tv, etc.) Make sure you are staying hydrated. Lay down to relax in a dark quiet room. Avoid sports until cleared by your primary doctor. Follow up with your PCP. Return to the Emergency Department if you experience discharge from your laceration, redness around your laceration, warmth around your laceration, fever, vomiting, numbness, tingling, or any other concerning symptoms. In the case of an emergency call 911. Prescriptions: No Action azithromycin 250 mg tablet See Rx Instructions .ROUTE .COMPLEX Qty: 6 0RF Rx Instructions: take 500 mg today (day 1), then 250 mg for 4 days (days 2-5) acetaminophen [Tylenol Extra Strength] 500 mg tablet 500 mg PO Q6H PRN (Reason: fever or pain) Qty: 14 0RF lidocaine [Lidoderm] 5 % adhesive patch,medicated 1 patch topical DAILY MDD remove after 12 hours PRN (Reason: pain) Qty: 30 0RF Rx Instructions: leave on most painful area for up to 12 hrs amoxicillin-pot clavulanate [Augmentin] 500-125 mg tablet 1 tab PO BID 7 Days Qty: 14 0RF morphine 15 mg tablet 15 mg PO Q8H PRN (Reason: pain (scale score 7-10)) 3 Days Qty: 6 0RF Rx Instructions: Partial Fill upon patient request. morphine 15 mg tablet 15 mg PO TID PRN (Reason: pain) Qty: 10 0RF Rx Instructions: Partial Fill upon patient request. acetaminophen 500 mg tablet 1,000 mg PO QID PRN (Reason: pain) Qty: 30 0RF Referrals: Ayan Trotter MD [Primary Care Provider, Internal Medicine] Interventions: ED Discharge Assessment Last Done: 04/05/25 13:02 Discharge Date/Time: 04/05/25 13:02 Print Language: Barbadian
--- NOTE | 2025-04-05 10:03 | PC.NURSE ---
KASANDRA Patiño at bedside evaluating the patient. Patient's friend at bedside visiting.
[2025-04-05] MEDS: Diphth,Pertus(ACell),Tet Adult 0.5 ML SYRINGE IM (10:58)
[2025-04-05] MEDS: Lidocaine HCl 1 % MPF 5 ML VIAL 10 ML INFILTRATI (10:59)
--- NOTE | 2025-04-05 11:35 | PC.NURSE ---
Away for xray, will medicate upon return. Preparing set-up for suture placement by KASANDRA Patiño. Care ongoing by this RN.
[2025-04-05] MEDS: oxyCODONE HCl Immed Release 5 MG TABLET PO (12:07)
--- OUTSIDE RECORDS SUMMARY | 2025-04-05 12:48 | XMS_ITS | Clinical Summary ---
Author Organization [facility] ity Address [address] [place] [address] Care Team Providers Care Advertising Sales Consultant Name Role Phone Holland Weinstein MD Primary Care Provider [phone] Surgical History Surgery Date Site/Laterality Comments HYSTERECTOMY 1995 PROCEDURE: HISTORICAL TOTAL HYSTERECTOMY WITH BSO APPENDECTOMY PROCEDURE: HISTORICAL APPENDECTOMY OTHER SURGICAL HISTORY PROCEDURE: ---- OTHER ----; COMMENT: had R ureteral stent, since removed CHOLECYSTECTOMY PROCEDURE: HISTORICAL CHOLECYSTECTOMY BACK SURGERY PROCEDURE: HISTORICAL BACK SURGERY; COMMENT: candie C2-C5 OTHER SURGICAL HISTORY 02/27/2010 PROCEDURE: CT SIGMOIDOSCOPY FLX W/BIOPSY SINGLE/MULTIPLE; COMMENT: incomplete CN to 40 cm. Bx: WNL ESOPHAGOGASTRODUODENOSCOPY 02/27/2010 PROCEDURE: CT EGD TRANSORAL BIOPSY SINGLE/MULTIPLE; COMMENT: gastric and duodenal bx: WNL OTHER SURGICAL HISTORY 10/26/2010 PROCEDURE: CT LAMNOTMY INCL W/DCMPRSN NRV ROOT 1 INTRSPC CERVC; COMMENT: c-spine disk surgery OTHER SURGICAL HISTORY PROCEDURE: CT OPTX ACTBLR FX INVG ANT/PST 1 COLUMN/FX W/INT; COMMENT: dr horacio vance Family History Medical History Relation Name Comments Other: cerebral palsy Brother 1 Heart attack Father early in life ( first at 42 yrs old) Lung cancer Father Alzheimer's disease Mother Diabetes Sister 1 Colon cancer Uncle 1 paternal #1 Colon cancer Uncle 2 paternal #2 Hypertension Neg Hx Relation Name Status Comments Brother 1 Brother 2 Father Mother Sister 1 Sister 2 Uncle 1 Uncle 2 Uncle 3 Social History Tobacco Use Types Packs/Day Years Used Date Smoking Tobacco: Every Day Cigarettes Smokeless Tobacco: Never Alcohol Use Standard Drinks/Week Comments No 0 (1 standard drink = 0.6 oz pur e alcohol) Comments Unknown Sex and Gender Information Value Date Recorded Sex Assigned at Not on file Legal Sex Female 2:10 AM EST Gender Identity Not on file Sexual Orientation Not on file Plan of Treatment Health Maintenance Due Date Last Done Comments Breast Cancer Screening 1965 Colorectal Cancer Screening: Colonoscopy 1965 Pneumococcal Vaccine: 50+ Ye ars (1 of 2 - PCV) 1982 Cervical Cancer Screening: P ap Smear 1984 Zoster Vaccines (1 of 2) 2013 DTaP,Tdap,and Td Vaccines (2 - Td or Tdap) 12/17/2019 12/16/2009 Cholesterol Screening (Lipid Panel) 03/18/2022 HIV Screening 03/18/2022 Hepatitis C Screening 03/18/2022 Osteoporosis Screening (Bone Density Screening) 03/18/2022 Social Influencers of Health Screening 03/18/2022 Hypertension/CHF/CAD Annual BMP Blood Test 03/28/2022 Depression Screening 04/15/2024 COVID-19 Vaccine (1 - 2024-2 6 season) 2024 Influenza Vaccine (#1) 2024 02/24/2010 RSV Immunization Adult Patie nts (1 - 1-dose 75+ series) 2038 HIB Vaccines Aged Out No longer eligi ble based on patient's age to complete this topic HPV Vaccines Aged Out No longer eligi ble based on patient's age to complete this topic Hepatitis A Vaccines Aged Out No long er eligible based on patient's age to complete this topic Hepatitis B Vaccines Aged Out No long er eligible based on patient's age to complete this topic IPV Vaccines Aged Out No longer eligi ble based on patient's age to complete this topic MMR Vaccines Aged Out No longer eligi ble based on patient's age to complete this topic Meningococcal ACWY Vaccine Aged Out N o longer eligible based on patient's age to complete this topic Meningococcal B Vaccine Aged Out No l onger eligible based on patient's age to complete this topic RSV Immunization Patients Un melissa 20 months Aged Out No longer eligible b ased on patient's age to complete this topic Varicella Vaccines Aged Out No longer eligible based on patient's age to complete this topic Care Teams Advertising Sales Consultant Relationship Specialty Start Date End Date Holland Weinstein MD [facility] [address] [facility] FANNY Yung [facility] - General 09/21/22
--- OUTSIDE RECORDS SUMMARY | 2025-04-05 12:48 | XMS_ITS | Encounter Summary ---
Author Organization [facility], Address [address] [place] [address] Phone Care Team Providers Care Caustic Loader Name Role Phone Holland Weinstein MD Primary Care Provider [phone] Encounter Details Date Type Department Care Team (Late st Contact Info) Description 07/02/2023 Documentation Only [facility] [address] [place] [address] Ela Hutson [address] [place] [id number] Social History Tobacco Use Types Packs/Day Years Used Date Smoking Tobacco: Some Days Alcohol Use Standard Drinks/Week Comments No 0 (1 standard drink = 0.6 oz pure alcohol) Alcoholic Drinks/day: 1-2 drinks per day Comments Unknown Sex and Gender Information Value Date Recorded Sex Assigned at Not on file Legal Sex Female 4:36 PM EST Gender Identity Not on file Sexual Orientation Not on file documented as of this encounter Plan of Treatment Upcoming Encounters Date Type Department Care Team (Late st Contact Info) Description 06/09/2025 10:20 AM EST Office Visit [facility] [address] [place] [address] Romeo Vega MD [address] [place] [address] documented as of this encounter Visit Diagnoses Not on filedocumented in this encounter Care Teams Caustic Loader Relationship Specialty Start Date End Date Abare, Holland J, MD [address] [place] PCP - General 02/17/19 documented as of this encounter
--- OUTSIDE RECORDS SUMMARY | 2025-04-05 12:48 | XMS_ITS | Encounter Summary ---
Author Organization [facility] [place], Address [address] [place] [address] Phone Care Team Providers Care Supervisor Ordnance Truck Installation Name Role Phone Holland Weinstein MD Primary Care Provider [phone] Encounter Details Date Type Department Care Team (Late st Contact Info) Description 11/01/2023 Documentation Only [facility] [address] [place] [address] Ela Hutson [address] [place] [phone] Social History Tobacco Use Types Packs/Day [...] Visit [facility] [address] [place] [address] Romeo Vega MD [address] [place] [address] documented as of this encounter Visit Diagnoses Not on filedocumented in this encounter Care Teams Supervisor Ordnance Truck Installation Relationship Specialty Start Date End Date Abare, Holland J, MD [address] [place] PCP - General 02/17/19 documented as of this encounter
--- OUTSIDE RECORDS SUMMARY | 2025-04-05 12:48 | XMS_ITS | Encounter Summary ---
Author Organization [facility] Address [address] [place] [address] Phone Care Team Providers Care Senior Net Software Developer Name Role Phone Holland Weinstein MD Primary Care Provider [phone] Encounter Details Date Type Department Care Team (Late st Contact Info) Description 10/21/2023 Orders Only [facility] [address] [place] [address] Kalia Tamez PA [address] [place] [address] [place] [address] Overactive bladder; Stage 3b chronic kidney disease (HCC); Hypertensive disorder; Anemia in chronic kidney disease Social History Tobacco Use Types Packs/Day Years [...] Visit [facility] [address] [place] [address] Romeo Vega MD [address] [place] [address] [place] [address] documented as of this encounter Visit Diagnoses Diagnosis Overactive bladder Stage 3b chronic kidney disease (HCC) Hypertensive disorder Anemia in chronic kidney disease documented in this encounter Care Teams Senior Net Software Developer Relationship Specialty Start Date End Date Holland Weinstein MD [address] [place] PCP - General 02/17/19 documented as of this encounter
--- OUTSIDE RECORDS SUMMARY | 2025-04-05 12:48 | XMS_ITS | Encounter Summary ---
Author Organization [facility] [place], Address [address] [place] [address] Phone Care Team Providers Care Gastroenterology Professor Name Role Phone Holland Weinstein MD Primary Care Provider [phone] Encounter Details Date Type Department Care Team (Late st Contact Info) Description 06/03/2023 Documentation Only [facility] [address] [place] [address] [place] [address] [place] [phone] Social History Tobacco Use Types Packs/Day [...] Visit [facility] [address] [place] [address] oRmeo Vega MD [address] [place] [address] [place] [address] documented as of this encounter Visit Diagnoses Not on filedocumented in this encounter Care Teams Gastroenterology Professor Relationship Specialty Start Date End Date Holland Weinstein MD [address] [place] PCP - General 02/17/19 documented as of this encounter
--- OUTSIDE RECORDS SUMMARY | 2025-04-05 12:48 | XMS_ITS | Encounter Summary ---
Author Organization [facility] Address [address] [place] [address] Phone Care Team Providers Care Maintenance Mechanic 2Nd Shift Name Role Phone Ayan Trotter MD Primary Care Provider + Kyle William MD, MSc Unavailable [phone] Kyle William MD, MSc Unavailable + [phone] Encounter Details Date Type Department Care Team (Late st Contact Info) Description 11/04/2024 Transcribe Orders [facility] [address] [address] Pcp, Unknown Social History Tobacco Use Types Packs/Day Years Used Date Smoking Tobacco: Former Cigarettes 0.5 5 2 018 - 2022 Passive Smoke Exposure: Past Comments:Now Vaping Alcohol Use Standard Drinks/Week Comments Not Currently 0 (1 standard drink = 0.6 oz pur e alcohol) Sober since 2011 Child or Family Care Answer Date Record ed Do you have problems with on e of the following making it difficult for you to work, study, or receive health care? No 06/18/2024 Education Answer Date Recorded Are you interested in help w ith more adult education (for example, completing high school, GED, job training, learning the Ethiopian language, technical skills, or developing parenting skills)? No 06/18/2024 Are you concerned about learning? Not on file 06/18/2024 No 06/18/2024 Yes 06/18/2024 Food Answer Date Recorded Within the past 6 months we worried whether our food would run out before we got money to buy more. Never True 07/20/2024 Within the past 6 months the food we bought just didn't last and we didn't have enough money to get more. Never True Residential Stability Answer Date Recor ded What is your housing situation today? I have ernestine toribio 07/20/2024 How many times have you move d in the past 12 months? Zero (I did not move) 07/20/2024 Paying for Meds Answer Date Recorded Do you have trouble paying for medicines? No 07/20/2024 Paying Utility Bills Answer Date Record ed Do you have trouble paying your heating or elect ricity bill? No 07/20/2024 Transportation Answer Date Recorded Has the lack of transportati on kept you from medical appointments or from getting medications? No 07/20/2024 Digital Access Answer Date Recorded No 07/20/2024 Yes 07/20/2024 Do you have reliable internet access at home? Ye s 07/20/2024 Do you have a device (e.g., phone, tablet, computer) with a working camera? Yes 07/20/2024 Intimate Partner Violence Answer Date R ecorded Are you denied basic needs s uch as food, clothing, or medical care? Deferred 07/20/2024 In the past 12 months have y ou been in a relationship with a person who hurts, threatens, or tries to control you? Deferred 07/20/2024 Are you denied basic needs s uch as food, clothing, or medical care? Deferred 07/20/2024 In the past 12 months have y ou been in a relationship with a person who hurts, threatens, or tries to control you? Deferred 07/20/2024 Comments No Sex and Gender Information Value Date Recorded Sex Assigned at Female 06/04/2024 11:33 AM EST Legal Sex Female 7:06 PM EST Gender Identity Female 06/04/2024 11:33 AM EST Sexual Orientation Straight 06/04/2024 11 :33 AM EST documented as of this encounter Plan of Treatment Not on file documented as of this encounter Visit Diagnoses Not on filedocumented in this encounter Care Teams Maintenance Mechanic 2Nd Shift Relationship Specialty Start Date End Date Ayan Trotter MD [address] [place] [address] PCP - General Family Medicine 06/04/24 Kyle William MD, MSc [address] [place] [id number] [email or web address] Colon and Rectal Surgery 06/04/24 Kyle William MD, MSc [address] [place] [email or web address] Referring Physician Colon and Rectal Surgery 06/04/24 documented as of this encounter Additional Source Comments The information contained in this document represents components of the legal health record. It is not the complete legal health record.[facility]
--- OUTSIDE RECORDS SUMMARY | 2025-04-05 12:48 | XMS_ITS | Encounter Summary ---
Author Organization [facility] [place], Address [address] [place] [address] Phone Care Team Providers Care Retail Store Clerk Name Role Phone Holland Weinstein MD Primary Care Provider [phone] Encounter Details Date Type Department Care Team (Late st Contact Info) Description 07/02/2023 Documentation Only [facility] [address] [place] [address] Ela Hutson [address] [place] [phone] Social History Tobacco Use Types Packs/Day [...] Visit [facility] [address] [place] [address] Romeo Vega MD [address] [place] [address] documented as of this encounter Visit Diagnoses Not on filedocumented in this encounter Care Teams Retail Store Clerk Relationship Specialty Start Date End Date Abare, Holland J, MD [address] [place] PCP - General 02/17/19 documented as of this encounter
--- OUTSIDE RECORDS SUMMARY | 2025-04-05 12:48 | XMS_ITS | Encounter Summary ---
Author Organization [facility] [place], Address [address] [place] [address] Phone Care Team Providers Care Senior Private Client Advisor Name Role Phone Holland Weinstein MD Primary Care Provider [phone] Encounter Details Date Type Department Care Team (Late st Contact Info) Description 11/12/2023 Documentation Only [facility] [address] [place] [address] Ela Hutson [address] [place] [phone] Social History Tobacco Use Types Packs/Day [...] Visit [facility] [address] [place] [address] Romeo Vega MD [address] [facility] [place] [address] documented as of this encounter Visit Diagnoses Not on filedocumented in this encounter Care Teams Senior Private Client Advisor Relationship Specialty Start Date End Date Abare, Holland J, MD [address] [place] PCP - General 02/17/19 documented as of this encounter
--- OUTSIDE RECORDS SUMMARY | 2025-04-05 12:48 | XMS_ITS | Encounter Summary ---
Author Organization [facility] [place], Address [address] [place] [address] Phone Care Team Providers Care Environmental Studies Program Director Name Role Phone Holland Weinstein MD Primary Care Provider [phone] Encounter Details Date Type Department Care Team (Late st Contact Info) Description 09/17/2023 Documentation Only [facility] [address] [place] [address] Elise Jama [address] [place] [phone] Social History Tobacco Use Types Packs/Day [...] Visit [facility] [address] [place] [address] Romeo Vega MD [address] [facility] [address] [place] [address] documented as of this encounter Visit Diagnoses Not on filedocumented in this encounter Care Teams Environmental Studies Program Director Relationship Specialty Start Date End Date Holland Weinstein MD [address] [place] PCP - General 02/17/19 documented as of this encounter
--- OUTSIDE RECORDS SUMMARY | 2025-04-05 12:49 | XMS_ITS | Encounter Summary ---
Author Organization [facility] [place], Address [address] [place] [address] Phone Care Team Providers Care Repair Miller Name Role Phone Holland Weinstein MD Primary Care Provider [phone] Encounter Details Date Type Department Care Team (Late st Contact Info) Description 10/17/2021 Documentation Only [facility] [address] [place] [address] Dave Luz MD [address] [place] [address] [place] [address] Social History Tobacco Use Types Packs/Day Years [...] Visit [facility] [address] [place] [address] Romeo Vega MD [address] [place] [address] [place] [address] documented as of this encounter Visit Diagnoses Not on filedocumented in this encounter Care Teams Repair Miller Relationship Specialty Start Date End Date Holland Weinstein MD [address] [place] PCP - General 02/17/19 documented as of this encounter
--- OUTSIDE RECORDS SUMMARY | 2025-04-05 12:49 | XMS_ITS | Encounter Summary ---
Author Organization [facility] Address [address] [place] [address] Phone Care Team Providers Care Electrical Maintenance Mechanic Name Role Phone Holland Weinstein MD Primary Care Provider [phone] Encounter Details Date Type Department Care Team (Late st Contact Info) Description 04/02/2025 Orders Only [facility] [address] [place] [address] Agata Edler, [place] [address] [place] [address] [place] [address] Chronic kidney disease, stage 4 (severe) (HCC); Anemia in chronic kidney disease Social History [...] Visit [facility] [address] [place] [address] Romeo Vega MD [address] [place] [address] [place] [address] documented as of this encounter Visit Diagnoses Diagnosis Chronic kidney disease, stage 4 (severe) (HCC) Anemia in chronic kidney disease documented in this encounter Care Teams Electrical Maintenance Mechanic Relationship Specialty Start Date End Date Holland Weinstein MD [address] [place] PCP - General 02/17/19 documented as of this encounter
--- OUTSIDE RECORDS SUMMARY | 2025-04-05 12:49 | XMS_ITS | Encounter Summary ---
Author Organization [facility] [place], Address [address] [place] [address] Phone Care Team Providers Care Plunger Scoop Operator Name Role Phone Holland Weinstein MD Primary Care Provider [phone] Encounter Details Date Type Department Care Team (Late st Contact Info) Description 08/21/2024 Documentation Only [facility] [address] [place] [address] Ela Hutson [address] [place] [phone] Social History Tobacco Use Types Packs/Day [...] Visit [facility] [address] [place] [address] Romeo Vega MD [address] [place] [address] documented as of this encounter Visit Diagnoses Not on filedocumented in this encounter Care Teams Plunger Scoop Operator Relationship Specialty Start Date End Date Abare, Holland J, MD [address] [place] PCP - General 02/17/19 documented as of this encounter
--- OUTSIDE RECORDS SUMMARY | 2025-04-05 12:49 | XMS_ITS | Encounter Summary ---
Author Organization [facility] [place], Address [address] [place] [address] Phone Care Team Providers Care System Operation Superintendent Name Role Phone Holland Weinstein MD Primary Care Provider [phone] Encounter Details Date Type Department Care Team (Late st Contact Info) Description 05/10/2022 Documentation Only [facility] [address] [place] [address] Kalia Tamez PA [address] [place] [address] [place] [address] Social History Tobacco Use Types Packs/Day Years [...] Visit [facility] [address] [place] [address] Romeo Vega MD [address] [place] [address] [place] [address] documented as of this encounter Visit Diagnoses Not on filedocumented in this encounter Care Teams System Operation Superintendent Relationship Specialty Start Date End Date Holland Weinstein MD [address] [place] PCP - General 02/17/19 documented as of this encounter
--- OUTSIDE RECORDS SUMMARY | 2025-04-05 12:49 | XMS_ITS | Encounter Summary ---
Author Organization [facility] [place], Address [address] [place] [address] Phone Care Team Providers Care Pastry Supervisor Name Role Phone Holland Weinstein MD Primary Care Provider [phone] Encounter Details Date Type Department Care Team (Late st Contact Info) Description 06/05/2024 Documentation Only [facility] [address] [place] [address] Ela Hutson [address] [place] [phone] Social History Tobacco Use Types Packs/Day [...] Visit [facility] [address] [place] [address] Romeo Vega MD [address] [facility] [place] [address] documented as of this encounter Visit Diagnoses Not on filedocumented in this encounter Care Teams Pastry Supervisor Relationship Specialty Start Date End Date Abare, Holland J, MD [address] [place] PCP - General 02/17/19 documented as of this encounter
--- OUTSIDE RECORDS SUMMARY | 2025-04-05 12:49 | XMS_ITS | Encounter Summary ---
Author Organization [facility] [place], Address [address] [place] [address] Phone Care Team Providers Care Try On Baster Name Role Phone Holland Weinstein MD Primary Care Provider [phone] Encounter Details Date Type Department Care Team (Late st Contact Info) Description 02/07/2023 Documentation Only [facility] [address] [place] [address] Ela Hutsno [address] [place] [phone] Social History Tobacco Use Types Packs/Day [...] Visit [facility] [address] [place] [address] Romeo Vega MD [address] [place] [address] documented as of this encounter Visit Diagnoses Not on filedocumented in this encounter Care Teams Try On Baster Relationship Specialty Start Date End Date Abare, Holland J, MD [address] [place] PCP - General 02/17/19 documented as of this encounter
--- OUTSIDE RECORDS SUMMARY | 2025-04-05 12:49 | XMS_ITS | Clinical Summary ---
Author Organization [facility] Address [address] [place] [address] Care Team Providers Care Freezing Machine Operator Name Role Phone Unavailable Primary Care Provider Unavailabl e Immunizations Immunization Administration Dates Next Due COVID-19 Vaccine (MODERNA) 06/08/2020,05/11/2020 Social History Tobacco Use Types Packs/Day Years Used Date Smoking Tobacco: Never Assessed Comments Unknown Sex and Gender Information Value Date Recorded Sex Assigned at Not on file Legal Sex Female 6:44 PM EST Gender Identity Not on file Sexual Orientation Not on file Plan of Treatment Health Maintenance Due Date Last Done Comments Blood Pressure 1963 Lipid Panel 1963 Depression Screening 1975 Hepatitis C Screening 1981 DTaP,Tdap,and Td Vaccines (1 - Tdap) 1982 Pap Smear 1984 Cervical Cancer Screening 1993 HPV/Cotest 1993 Breast Cancer Screening 2003 CT Colonography 2008 Colonoscopy 2008 Colorectal Cancer Screening 2008 FIT 2008 FOBT 2008 Multitarget Stool DNA (Cologuard) 2008 Sigmoidoscopy 2008 Pneumococcal Vaccine: 50+ Years (1 of 1 - PCV) 2013 Zoster Vaccine (1 of 2) 2013 COVID-19 Vaccine (3 - 2024-2 6 season) 2024 06/08/2020, 05/11/2020 Influenza Vaccine (#1) 2024 Meningococcal B Vaccines Aged Out No longer eligible based on patient's age to complete this topic Meningococcal Vaccines Aged Out No lo nger eligible based on patient's age to complete this topic
--- OUTSIDE RECORDS SUMMARY | 2025-04-05 12:49 | XMS_ITS | Encounter Summary ---
Author Organization [facility] [place], Address [address] [place] [address] Phone Care Team Providers Care Bobbin Handler Name Role Phone Holland Weinstein MD Primary Care Provider [phone] Encounter Details Date Type Department Care Team (Late st Contact Info) Description 06/05/2024 Documentation Only [facility] [address] [place] [address] Ela Hutson [address] [place] [phone] Social History Tobacco Use Types Packs/Day [...] Visit [facility] [address] [place] [place] [address] Romeo Vega MD [address] [place] [address] documented as of this encounter Visit Diagnoses Not on filedocumented in this encounter Care Teams Bobbin Handler Relationship Specialty Start Date End Date Abare, Holland J, MD [address] [place] PCP - General 02/17/19 documented as of this encounter
--- OUTSIDE RECORDS SUMMARY | 2025-04-05 12:49 | XMS_ITS | Encounter Summary ---
Author Organization [facility] [place], Address [address] [place] [address] Phone Care Team Providers Care Shredded Filler Hopper Feeder Name Role Phone Holland Weinstein MD Primary Care Provider [phone] Encounter Details Date Type Department Care Team (Late st Contact Info) Description 11/08/2022 Documentation Only [facility] [address] [place] [address] [place] [address] [place] [phone] Social History Tobacco Use Types Packs/Day [...] Visit [facility] [address] [place] [address] Romeo Vega MD [address] [place] [address] documented as of this encounter Visit Diagnoses Not on filedocumented in this encounter Care Teams Shredded Filler Hopper Feeder Relationship Specialty Start Date End Date Holland Weinstein MD [address] [place] PCP - General 02/17/19 documented as of this encounter
--- OUTSIDE RECORDS SUMMARY | 2025-04-05 12:49 | XMS_ITS | Encounter Summary ---
Author Organization [facility] [place], Address [address] [place] [address] Phone Care Team Providers Care Director It Project Name Role Phone Holland Weinstein MD Primary Care Provider [phone] Encounter Details Date Type Department Care Team (Late st Contact Info) Description 05/28/2023 Documentation Only [facility] [address] [address] Ela Hutson [address] [place] [phone] Social History Tobacco Use Types Packs/Day [...] Care [facility] [address] [address] Romeo Vega MD [address] [place] [address] documented as of this encounter Visit Diagnoses Not on filedocumented in this encounter Care Teams Director It Project Relationship Specialty Start Date End Date Abare, Holland J, MD [address] [place] PCP - General 02/17/19 documented as of this encounter
--- OUTSIDE RECORDS SUMMARY | 2025-04-05 12:49 | XMS_ITS | Encounter Summary ---
Author Organization [facility] Address [address] [place] [address] Phone Care Team Providers Care Workgroup Leader Name Role Phone Ayan Trotter MD Primary Care Provider + Kyle William MD, MSc Unavailable [phone] Kyle William MD, MSc Unavailable + [phone] Encounter Details Date Type Department Care Team (Late st Contact Info) Description 07/20/[address] [facility] [address] [place] [address] Social History Tobacco Use Types Packs/Day Years [...] high school, GED, job training, learning the Libyan language, technical skills, or developing parenting skills)? [...] on filedocumented in this encounter Care Teams Workgroup Leader Relationship Specialty Start Date End Date Ayan Trotter MD NPI: [id number] [place] [phone] PCP - General Family Medicine 06/04/24 Kyle William MD, MSc [address] [place] [phone] [email or web address] Colon and Rectal Surgery 06/04/24 Kyle William MD, MSc [address] [place] [phone] [email or web address] Referring Physician Colon and Rectal Surgery 06/04/24 documented as of this encounter Additional Source Comments The information contained in this document represents components of the legal health record. It is not the complete legal health record.[facility]
--- OUTSIDE RECORDS SUMMARY | 2025-04-05 12:49 | XMS_ITS | Encounter Summary ---
Author Organization [facility], Address [address] [place] [address] Phone Care Team Providers Care Telegraph Repeater Installer Name Role Phone Holland Weinstein MD Primary Care Provider Encounter Details Date Type Department Care Team (Late st Contact Info) Description 08/12/2024 Documentation Only [facility] [address] [place] [address] [place] [address] [place] [phone] Social History Tobacco Use Types Packs/Day [...] Visit [facility] [address] [place] [address] Romeo Vega MD [address] [place] [phone] documented as of this encounter Visit Diagnoses Not on filedocumented in this encounter Care Teams Telegraph Repeater Installer Relationship Specialty Start Date End Date Holland Weinstein MD [address] [place] PCP - General 02/17/19 documented as of this encounter
--- OUTSIDE RECORDS SUMMARY | 2025-04-05 12:49 | XMS_ITS | Encounter Summary ---
Author Organization [facility] Address [address] [place] [address] Phone Care Team Providers Care Mechanical Maintenance Worker Name Role Phone Ayan Trotter MD Primary Care Provider + Kyle William MD, MSc Unavailable + [phone] Kyle William MD, MSc Unavailable + [phone] Encounter Details Date Type Department Care Team (Late st Contact Info) Description 06/23/2024 Procedure Pass [facility] [address] [place] [address] Social History Tobacco Use Types Packs/Day Years Used Date Smoking Tobacco: Unknown Alcohol Use Standard Drinks/Week Comments Not Currently 0 (1 standard drink = 0.6 oz pur e alcohol) Child or Family Care Answer Date Record ed Do you have problems with on e of the following making it difficult for you to work, study, or receive health care? No 06/18/2024 Education Answer Date Recorded Are you interested in help w ith more adult education (for example, completing high school, GED, job training, learning the Dive[place] language, technical skills, or developing parenting skills)? No 06/18/2024 Are you concerned about learning? Not on file 06/18/2024 No 06/18/2024 Yes 06/18/2024 Food Answer Date Recorded Within the past 6 months we worried whether our food would run out before we got money to buy more. Never True 06/23/2024 Within the past 6 months the food we bought just didn't last and we didn't have enough money to get more. Never True Residential Stability Answer Date Recor ded What is your housing situation today? I have ernestine toribio 06/23/2024 How many times have you move d in the past 12 months? Zero (I did not move) 06/23/2024 Paying for Meds Answer Date Recorded Do you have trouble paying for medicines? No 06/23/2024 Paying Utility Bills Answer Date Record ed Do you have trouble paying your heating or elect ricity bill? No 06/23/2024 Transportation Answer Date Recorded Has the lack of transportati on kept you from medical appointments or from getting medications? No 06/23/2024 Digital Access Answer Date Recorded No 06/23/2024 Yes 06/23/2024 Do you have reliable internet access at home? Ye s 06/23/2024 Do you have a device (e.g., phone, tablet, computer) with a working camera? Yes 06/23/2024 Intimate Partner Violence Answer Date R ecorded Are you denied basic needs s uch as food, clothing, or medical care? No 06/23/2024 In the past 12 months have y ou been in a relationship with a person who hurts, threatens, or tries to control you? No 06/23/2024 Are you denied basic needs s uch as food, clothing, or medical care? No 06/23/2024 In the past 12 months have y ou been in a relationship with a person who hurts, threatens, or tries to control you? No 06/23/2024 Comments Unknown Sex and Gender Information Value [...] on filedocumented in this encounter Care Teams Mechanical Maintenance Worker Relationship Specialty Start Date End Date Ayan Trotter MD [address] [place] [phone] PCP - General Family Medicine 06/04/24 Kyle William MD, MSc [address] [place] [phone] [email or web address] Colon and Rectal Surgery 06/04/24 Kyle William MD, MSc [address] [place] [phone] [email or web address] Referring Physician Colon and Rectal Surgery 06/04/24 documented as of this encounter Additional Source Comments The information contained in this document represents components of the legal health record. It is not the complete legal health record.[facility]
--- OUTSIDE RECORDS SUMMARY | 2025-04-05 12:49 | XMS_ITS | Encounter Summary ---
Author Organization [facility], Address [address] [place] [address] Phone Care Team Providers Care Computer Repair Engineer Name Role Phone Holland Weinstein MD Primary Care Provider [phone] Encounter Details Date Type Department Care Team (Late st Contact Info) Description 02/07/2023 Documentation Only [facility] [address] [place] [address] Ela Hutson [address] [place] [phone] Social History Tobacco Use Types Packs/Day [...] [facility] [address] [place] [address] Romeo Vega MD [address] [facility] [place] [phone] documented as of this encounter Visit Diagnoses Not on filedocumented in this encounter Care Teams Computer Repair Engineer Relationship Specialty Start Date End Date Abare, Holland J, MD [address] [place] PCP - General 02/17/19 documented as of this encounter
--- OUTSIDE RECORDS SUMMARY | 2025-04-05 12:49 | XMS_ITS | Encounter Summary ---
Author Organization [facility] [place], Address [address] [place] [address] Phone Care Team Providers Care Automobile Damage Appraiser Name Role Phone Holland Weinstein MD Primary Care Provider Encounter Details Date Type Department Care Team (Late st Contact Info) Description 08/12/2024 Documentation Only [facility] [address] [place] [address] [place] [address] [place] [phone] Social History Tobacco Use Types Packs/Day [...] [facility] [address] [place] [address] Romeo Vega MD [address] [facility] [address] [facility] [place] [phone] documented as of this encounter Visit Diagnoses Not on filedocumented in this encounter Care Teams Automobile Damage Appraiser Relationship Specialty Start Date End Date Holland Weinstein MD [address] [place] PCP - General 02/17/19 documented as of this encounter
--- OUTSIDE RECORDS SUMMARY | 2025-04-05 12:49 | XMS_ITS | Encounter Summary ---
Author Organization [facility] [place], Address [address] [place] [address] Phone Care Team Providers Care Loan Consultant Name Role Phone Holland Weinstein MD Primary Care Provider [phone] Encounter Details Date Type Department Care Team (Late st Contact Info) Description 11/24/2021 Documentation Only [facility] [address] [place] [address] Dave Luz MD [address] [place] [address] [place] [address] Social History Tobacco Use Types [...] Visit [facility] [address] [place] [address] Romeo Vega MD [address] [place] [address] [place] [address] documented as of this encounter Visit Diagnoses Not on filedocumented in this encounter Care Teams Loan Consultant Relationship Specialty Start Date End Date Holland Weinstein MD [address] [place] PCP - General 02/17/19 documented as of this encounter
--- OUTSIDE RECORDS SUMMARY | 2025-04-05 12:49 | XMS_ITS | Encounter Summary ---
Author Organization [facility] [place], Address [address] [place] [address] Phone Care Team Providers Care Air Quality Chemist Name Role Phone Holland Weinstein MD Primary Care Provider [phone] Encounter Details Date Type Department Care Team (Late st Contact Info) Description 05/10/2022 Documentation Only [facility] [address] [place] [address] Kalia Tamez PA [address] [place] [address] [place] [address] Social History Tobacco Use Types [...] Visit [facility] [address] [place] [address] Romeo Vega MD [address] [place] [address] [place] [phone] documented as of this encounter Visit Diagnoses Not on filedocumented in this encounter Care Teams Air Quality Chemist Relationship Specialty Start Date End Date Holland Weinstein MD [address] [place] PCP - General 02/17/19 documented as of this encounter
--- OUTSIDE RECORDS SUMMARY | 2025-04-05 12:49 | XMS_ITS | Encounter Summary ---
Author Organization [facility] [place], Address [address] [place] [address] Phone Care Team Providers Care Size Maker Name Role Phone Holland Weinstein MD Primary Care Provider [phone] Encounter Details Date Type Department Care Team (Late st Contact Info) Description 08/07/2022 Documentation Only [facility] [address] [place] [address] Kalia Tamez PA [address] [place] [address] [place] [address] Social History Tobacco Use Types [...] Services Of [facility] [address] [place] [address] Romeo Vega MD [address] [place] [address] [place] [phone] documented as of this encounter Visit Diagnoses Not on filedocumented in this encounter Care Teams Size Maker Relationship Specialty Start Date End Date Holland Weinstein MD [address] [place] PCP - General 02/17/19 documented as of this encounter
--- OUTSIDE RECORDS SUMMARY | 2025-04-05 12:49 | XMS_ITS | Encounter Summary ---
Author Organization [facility] [place], Address [address] [place] [address] Phone Care Team Providers Care Machine Fitter Name Role Phone Holland Weinstein MD Primary Care Provider [phone] Encounter Details Date Type Department Care Team (Late st Contact Info) Description 09/24/2022 Documentation Only [facility] [address] [place] [address] Ela Hutson [address] [place] [phone] Social History Tobacco Use Types Packs/Day [...] Visit [facility] [address] [place] [address] Romeo Vega MD [address] [place] [address] documented as of this encounter Visit Diagnoses Not on filedocumented in this encounter Care Teams Machine Fitter Relationship Specialty Start Date End Date Abare, Holland J, MD [address] [place] PCP - General 02/17/19 documented as of this encounter
--- OUTSIDE RECORDS SUMMARY | 2025-04-05 12:49 | XMS_ITS | Clinical Summary ---
Author Organization [facility] Address [address] [facility] [address] [place] [address] Phone Care Team Providers Care Pattern Duplicator Name Role Phone Ayan Trotter MD Primary Care Provider + Kyle William MD, MSc Unavailable + [phone] Kyle William MD, MSc Unavailable + [phone] Allergies Active Allergy Reactions Criticality Noted Date Comments Codeine Headaches 11/21/2011 Iodinated Contrast Media Hives High 06/23/2024 Tree Nut Anaphylaxis High 06/23/2024 Medications amLODIPine (NORVASC) 5 MG tablet Take 7.5 mg by mouth daily. Active aspirin 81 mg chewable tablet Take 81 mg by mouth daily. Active carisoprodol (SOMA) 350 MG tablet Take 350 mg by mouth 4 (four) times a day as needed for spasm. Active DULoxetine (CYMBALTA) 60 MG capsule Take 60 mg by mouth daily. Active clonazePAM (KLONOPIN) 0.5 MG disintegrating tablet Take 0.5 mg by mouth nightly at bedtime as needed for anxiety. Active escitalopram oxalate (LEXAPRO) 5 MG tablet Take 5 mg by mouth daily. Active cholecalciferol (VITAMIN D3) 50,000 unit capsule Take 50,000 Units by mouth once a week. Active FORTEO 20 mcg/dose (600mcg/2.4mL) PnIj Inject 20 mcg under the skin daily. 4 Active acetaminophen (TYLENOL) 325 mg tablet Take 2 tablets (650 mg total) by mouth every 6 (six) hours as needed for pain (specific location in comments). 5 Active simethicone (MYLICON) 80 mg chewable tablet Take 1 tablet (80 mg total) by mouth every 6 (six) hours as needed (gas pain). 5 Active HYDROmorphone (DILAUDID) 4 MG tablet Take 1 tablet (4 mg total) by mouth every 6 (six) hours as needed for pain (specific location in comments). Partial fill ok 10 tablet 5 Active apixaban (ELIQUIS) 2.5 mg Take 1 tablet (2.5 mg total) by mouth 2 (two) times a day for 21 days. 42 tablet 5 Active hyoscyamine (LEVSIN SL) 0.[address] 1 tablet (0.125 mg total) under the tongue every 4 (four) hours as needed for cramping (specific location in comments) (gas pain). 5 tablet 5 Active Active Problems Problem Noted Date Diagnosed Date S/P right colectomy 07/20/2024 Cancer 06/23/2024 Osteoarthritis of hip 03/04/2012 Overview (06/05/2014): Osteoarthritis of hip Osteoarthritis of hip 01/03/2012 Overview (06/05/2014): Osteoarthritis of hip Immunizations Immunization Administration Dates Next Due Pneumococcal polysaccharide PPSV23 11/23/2011(De ferred: Other) Social History Tobacco Use Types Packs/Day Years Used Date Smoking Tobacco: Former Cigarettes 0.5 5 2 018 - 2022 Passive Smoke Exposure: Past Tobacco Cessation:Counseling Given: Not Answered Comments:Now Vaping Alcohol Use Standard Drinks/Week Comments [...] high school, GED, job training, learning the Lao language, technical skills, or developing parenting skills)? [...] your housing situation today? I have ernestine sing 07/20/2024 How many times have you move [...] Orientation Straight 06/04/2024 11 :33 AM EST Last Filed Vital Signs Vital Sign Reading Time Taken Comments Blood Pressure 101/68 09/22/2024 1:59 PM EDT Pulse 104 09/22/2024 1:59 PM EDT Temperature 36.3 C (97.4 F) 07/23/2024 11:32 AM EDT Respiratory Rate 16 09/22/2024 1:59 PM EDT Oxygen Saturation 98% 09/22/2024 1:59 PM EDT Inhaled Oxygen Concentration - - Weight 40.5 kg (89 lb 4.8 oz) 09/22/2024 1:59 PM EDT Height 147.3 cm (4' 9.99 ) 09/22/2024 1:59 PM ED T Body Mass Index 18.67 09/22/2024 1:59 PM EDT Plan of Treatment Health Maintenance Due Date Last Done Comments DEPRESSION SCREENING 1975 HEPATITIS C SCREENING 1981 HIV ONE-TIME SCREENING (18-65 YEARS) 1981 PAP SMEAR 1984 MAMMOGRAM 2003 COLOGUARD 2008 COLONOSCOPY 2008 COLORECTAL CANCER SCREENING 2008 FIT TEST 2008 FOBT 2008 SIGMOIDOSCOPY 2008 VIRTUAL COLONOSCOPY 2008 INFLUENZA VACCINE (#1) 2024 , 01/25/2023, 02/07/2022, Additional history exists COVID-19 VACCINE ( season) 2024 02/28/2024, 01/25/2023, 02/07/2022, Additional history exists SMOKING Hx and SMOKELESS TOBACCO SCREENING 09/22/2025 09/22/2024 LIPID PANEL 12/02/2028 12/03/2023 Adult Td,Tdap Booster 09/16/2034 09/16/2024 , 01/31/2015, 12/16/2009 RSV VACCINE (1 - 1-dose 75+ series) 2038 ZOSTER VACCINES Completed 11/07/2021, 04/19/2020 PNEUMOCOCCAL VACCINES (50+ years) Completed 09/09/2023 HEPATITIS A VACCINES Aged Out No long er eligible based on patient's age to complete this topic HIB VACCINES Aged Out No longer eligi ble based on patient's age to complete this topic MENINGOCOCCAL VACCINES (ACWY) Aged Out No longer eligible based on patient's age to complete this topic MENINGOCOCCAL VACCINES (B) Aged Out N o longer eligible based on patient's age to complete this topic Medical Devices Implanted Type Area Ladies Attendant Device Identifier Shelf Expiration Date Model / Serial / Lot Cervical Fusion Coronary Stents Bms-Rca Description:2008 Total Hip R Screws R Wrist Insurance [facility] [place] BLUE REPLACEMENT [facility] PPO BLUE [facility]PLACEMENT [facility] MEDIC[facility] PPO BLUE REPLACEMENT [facility] MEDICARE PPO BLUE REPLACEMENT [facility] MEDICARE PPO BLUE RE[place]UE REPLAC[place] Advance Directives For more information, please contact: [phone] (9AM - 5PM [facility], Saturday-Saturday) * Full Code (Latest Code Status on File) Date Activated Date Inactivated Comments 07/20/2024 4:42 PM Question Answer Comments Code Status Confirmed With: Patient * Full Code Date Activated Date Inactivated Comments 06/23/2024 7:54 PM 07/20/2024 4:42 PM Question Answer Comments Code Status Confirmed With: Other (specify below ) Code Status Communicated To: Other (specify pietro josue) Care Teams Pattern Duplicator Relationship Specialty Start Date End Date Ayan Trotter MD [address] [place] [id number] PCP - General Family Medicine 06/04/24 Kyle William MD, MSc [address] [place] [phone] [email or web address] Colon and Rectal Surgery 06/04/24 Kyle William MD, MSc [address] [place] [phone] [email or web address] Referring Physician Colon and Rectal Surgery 06/04/24 Additional Source Comments The information contained in this document represents components of the legal health record. It is not the complete legal health record.[facility]
--- OUTSIDE RECORDS SUMMARY | 2025-04-05 12:49 | XMS_ITS | Encounter Summary ---
Author Organization [facility] [place], Address [address] [place] [address] Phone Care Team Providers Care Chief Controller Center Name Role Phone Holland Weinstein MD Primary Care Provider [phone] Encounter Details Date Type Department Care Team (Late st Contact Info) Description 09/15/2021 Documentation Only [facility] [address] [place] [address] Dave Luz MD [address] [place] [address] [place] [address] Social History Tobacco Use Types [...] Visit [facility] [address] [place] [address] Romeo Vega MD [address] [place] [address] [place] [address] documented as of this encounter Visit Diagnoses Not on filedocumented in this encounter Care Teams Chief Controller Center Relationship Specialty Start Date End Date Holland Weinstein MD [address] [place] PCP - General 02/17/19 documented as of this encounter
--- OUTSIDE RECORDS SUMMARY | 2025-04-05 12:49 | XMS_ITS | Encounter Summary ---
Author Organization [facility] [place], Address [address] [place] [address] Phone Care Team Providers Care Oil Speculator Name Role Phone Holland Weinstein MD Primary Care Provider [phone] Encounter Details Date Type Department Care Team (Late st Contact Info) Description 12/28/2022 Documentation Only [facility] [address] [place] [address] Ela Hutson [address] [place] [phone] Social History Tobacco Use Types Packs/Day [...] Visit [facility] [address] [place] [address] Roemo Vega MD [address] [facility] [place] [address] documented as of this encounter Visit Diagnoses Not on filedocumented in this encounter Care Teams Oil Speculator Relationship Specialty Start Date End Date Abare, Holland J, MD [address] [place] PCP - General 02/17/19 documented as of this encounter
--- OUTSIDE RECORDS SUMMARY | 2025-04-05 12:49 | XMS_ITS | Encounter Summary ---
Author Organization [facility] [place], Address [address] [place] [address] Phone Care Team Providers Care Maintenance Data Analyst Name Role Phone Holland Weinstein MD Primary Care Provider [phone] Encounter Details Date Type Department Care Team (Late st Contact Info) Description 09/18/2022 Documentation Only [facility] [address] [place] [place] [address] Ela Hutson [address] [place] [phone] Social History Tobacco Use Types Packs/Day [...] Visit [facility] [address] [place] [address] Romeo Vega MD [address] [facility] [address] [place] [address] documented as of this encounter Visit Diagnoses Not on filedocumented in this encounter Care Teams Maintenance Data Analyst Relationship Specialty Start Date End Date Abare, Holland J, MD [address] [place] PCP - General 02/17/19 documented as of this encounter
--- OUTSIDE RECORDS SUMMARY | 2025-04-05 12:49 | XMS_ITS | Clinical Summary ---
Author Organization [facility], Address [address] [place] [address] [place] [address] Phone Care Team Providers Care Radiologic Technology Instructor Name Role Phone Holland Weinstein MD Primary Care Provider Allergies Active Allergy Reactions Criticality Noted Date Comments Amoxicillin-Pot Clavulanate Diarrhea 03/31/20 19 Codeine 03/27/2021 Diphenhydramine Hcl Other (see comments) 2018 Hydromorphone 03/27/2021 Iodinated Contrast Media 03/27/2021 Medications aspirin 81 MG chewable tablet Chew 81 mg 1 (one) time each day Active Multiple Vitamin (multivitamin) tablet Take 1 tablet by mouth 1 (one) time each day Active Naloxone HCl (Narcan) 4 MG/0.1ML liquid Administer into affected nostril(s) Active carisoprodol (SOMA) 350 MG tablet Take 350 mg by mouth 3 (three) times a day if needed for muscle spasms Active DULoxetine (CYMBALTA) [address] capsule Take 60 mg by mouth 1 (one) time each day Do not crush or chew. Active ondansetron (ZOFRAN) 4 MG tablet Take 4 mg by mouth every 8 (eight) hours if needed for nausea or vomiting Active traZODone (DESYREL) 50 MG tablet Take 50 mg by mouth every night Active Buprenorphine HCl-Naloxone HCl (SUBOXONE) 8-2 MG per SL film TAKE 1 FILM SUBLINGUALLY EVERY DAY 2 Active acetaminophen (Acetaminophen 8 Hour) 650 MG 8 hr tablet Take 650 mg by mouth every 8 (eight) hours if needed for mild pain Do not crush, chew, or split. Active ergocalciferol (Drisdol) 1.25 MG (50120 UT) capsule Take 1 capsule (50,000 Units total) by mouth 1 (one) time per week for 10 doses 10 capsule 3 Active ferrous sulfate 325 (65 Fe) MG tablet TAKE 1 TABLET BY MOUTH 1 TIME EACH DAY WITH BREAKFAST. 30 tablet 11 3 Active hydrOXYzine (ATARAX) 50 MG tablet TAKE 1&1/2 TABLET BY MOUTH AT BEDTIME NEEDED INSOMNIA AND 1/2 TABLET DAILY FOR ANXIETY IF NEEDED 4 Active OXcarbazepine (TRILEPTAL) 300 MG tablet TAKE 1 AND 1/2 TABLET BY MOUTH AT BEDTIME 4 Active Epoetin Nataliya-epbx (Retacrit) 20058 UNIT/ML solution Inject 20,000 Units as directed per week Injection route is subcutaneous. DX: D63.1 (Anemia in CKD) 4 mL 11 4 Active epoetin nataliya (Procrit) 10317 UNIT/ML injectionIndica tions:Anemia due to Renal Failure Inject 1 mL (20,000 Units total) under the skin every 7 (seven) days DX: D63.1 (Anemia in CKD) Injection route is subcutaneous. 4 mL 11 4 Active Insulin Syringe-Needle U-100 (Safety Insulin Syringes) 30G X 1/2 1 ML misc USE TO ADMINISTER PROCRIT DX: D63.1 (ANEMIA IN CKD) 10 each 11 4 Active amLODIPine (NORVASC) 5 MG tablet Take 7.5 mg by mouth 1 (one) time each day 4 Active rOPINIRole (REQUIP) 0.5 MG tablet Take 1 tablet (0.5 mg total) by mouth at bed time 90 tablet 3 5 Active Active Problems Problem Noted Date Diagnosed Date Anemia in chronic kidney disease 11/22/2021 Stage 3b chronic kidney disease 10/23/2021 Vitamin D deficiency, not otherwise specified Iron deficiency anemia, not otherwise specified 10/08/2019 Hypertensive disorder 03/31/2019 Resolved Problems Problem Noted Date Diagnosed Date Resolved Date Vitamin D deficiency, not otherwise specified 04/14/20 20 03/27/2021 Anemia 03/31/2019 03/27/2021 Coronary arteriosclerosis 03/31/2019 Chronic kidney disease stage 4 03/31/2019 10/23/2021 Myocardial infarction 03/31/20192020 Sleep apnea 03/31/2019 03/27/2021 Overactive bladder Encounters Date Type Department Care Team Description 04/02/2025 Orders Only [facility] [address] [place] [phone] Agata Elder, logging crew supervisor kidney disease, stage 4 (severe) ([facility]); Anemia in chronic kidney disease 03/05/2025 Orders Only [facility] [address] [place] [phone] Agata Elder RN Chronic kidney disease, stage 4 (severe) (HCC); Anemia in chronic kidney disease 02/05/2025 Orders Only [facility] [address] [place] [phone] Agata Elder RN Chronic kidney disease, stage 4 (severe) ([facility]); Anemia in chronic kidney disease 01/08/2025 Orders Only [facility] [address] [place] [phone] Agata Elder, logging crew supervisor kidney disease, stage 4 (severe) (HCC); Anemia in chronic kidney disease from Last 3 Months Immunizations Immunization Administration Dates Next Due Influenza Whole 01/28/2020 Influenza, Unspecified 02/07/2022,2019,02/18/2019,03/01/2016,01/13,03/31/2014,02/24/2010 Moderna SARS-COV-2 11/07/2021,06/08/2020, 021 Pneumococcal Polysaccharide 11/12/2011 SARS-CoV-2, Unspecified 02/07/2022 Shingrix 11/07/2021 Tdap 01/31/2015,12/16/2009 Zoster 04/19/2020 Family History Medical History Relation Comments Cancer Father prostate/colon Heart disease Father Coronary artery disease Hypertension Father Cancer Sibling Sister ( ) Diabetes Sibling sister-weight re lated, brother Heart disease Sibling Brother: CAD - C oronary artery disease Relation Status Comments Father Unknown Mother Unknown Sibling Social History Tobacco Use Types Packs/Day Years [...] on file Sexual Orientation Not on file Last Filed Vital Signs Vital Sign Reading Time Taken Comments Blood Pressure 86/53 07/31/2024 10:54 AM EDT Pulse 61 07/31/2024 10:54 AM EDT Temperature - - Respiratory Rate 16 04/02/2019 4:32 PM EST Oxygen Saturation - - Inhaled Oxygen Concentration - - Weight 45.2 kg (99 lb 9.6 oz) 11/20/2023 2:18 PM EDT Height 154.9 cm (5' 1 ) 11/20/2023 2:18 PM EDT Body Mass Index 18.82 11/20/2023 2:18 PM EDT Plan of Treatment Upcoming Encounters Date Type Department Care Team (Late st Contact Info) Description 06/09/2025 10:20 AM EST Office Visit [facility] [address] [place] [phone] Romeo Vega MD [address] [place] [address] [place] [phone] Health Maintenance Due Date Last Done Comments Breast Cancer Screening 1965 Colorectal Cancer Screening: Annual FOBT 2012 Colorectal Cancer Screening: Colonoscopy 2012 Colorectal Cancer Screening: Sigmoidoscopy 2012 Pneumococcal Vaccine: 50+ Ye ars (2 of 2 - PCV) 11/11/2012 11/12/2011 Hepatitis B Vaccine (1 of 3 - Risk 3-dose series) 2023 Influenza Vaccine (#1) 2024 2, 02/24/2020, 01/28/2020, Additional history exists Pneumococcal Vaccine: Peds ( 0 to 5 Years) and At-Risk Patients (6 to 49 Years) Discontinued 11/12/2011 Procedures Procedure Name Priority Date/Time Associated Diagnosis Comments CBC AND DIFFERENTIAL Routine 12/28/2024 5:03 PM EDT Chronic kidney disease, stage 4 (severe) (HCC) Anemia in chronic kidney disease from Last 3 Months or Most Recently Relevant to Health Maintenance Results * (ABNORMAL) CBC and Differential (12/28/2024 5:03 PM EDT) WBC 7.3 3.4 - 10.8 x10E3/uL [facility] RBC 3.33(L) 3.77 - 5.28 x10E6/uL [facility] Hemoglobin 10.2(L) 11.1 - 15.9 g/dL [facility] Hematocrit 32.2(L) 34.0 - 46.6 % [facility] MCV 97 79 - 97 fL [facility] MCH 30.6 26.6 - 33.0 pg [facility] MCHC 31.7 31.5 - 35.7 g/dL [facility] RDW 14.0 11.7 - 15.4 % [facility] Platelets 202 150 - 450 x10E3/uL [facility] Neutrophils Relative 62 Not Estab. % [facility] Lymphocytes Relative 20 Not Estab. % [facility] Monocytes 9 Not Estab. % [facility] Eosinophils Relative 8 Not Estab. % [facility] Basophils Relative 1 Not Estab. % [facility] Neutrophils Absolute 4.5 1.4 - 7.0 x10E3/uL [facility] Lymphocytes Absolute 1.4 0.7 - 3.1 x10E3/uL [facility] Monocytes Absolute 0.7 0.1 - 0.9 x10E3/uL [facility] Eosinophils Absolute 0.6(H) 0.0 - 0.4 x10E3/uL [facility] Basophils Absolute 0.1 0.0 - 0.2 x10E3/uL [facility] Immature Granulocytes 0 Not Estab. % [facility] Immature Grans (Absolute) 0.0 0.0 - 0.1 x10E3/uL [facility] Blood specimen (specimen) Venous blood / Unknown 12/28/2024 5:03 PM EDT 12/28/2024 Romeo Vega MD LAB BLOOD ORDERABLES Final Re sult [facility] [address] [place] [address] from Last 3 Months or Most Recently Relevant to Health Maintenance Insurance [facility] Medicaid [place] Care Teams Radiologic Technology Instructor Relationship Specialty Start Date End Date Holland Weinstein MD [address] [place] PCP - General 02/17/19
--- OUTSIDE RECORDS SUMMARY | 2025-04-05 12:49 | XMS_ITS | Encounter Summary ---
Author Organization [facility], Address [address] [place] [address] Phone Care Team Providers Care Gas Plant Worker Name Role Phone Holland Weinstein MD Primary Care Provider [phone] Encounter Details Date Type Department Care Team (Late st Contact Info) Description 09/13/2022 Documentation Only [facility] [address] [place] [address] Ela Hutson [address] [place] [phone] Social History Tobacco Use Types Packs/Day [...] [facility] [address] [place] [address] Romeo Vega MD [address] [facility] [place] [address] documented as of this encounter Visit Diagnoses Not on filedocumented in this encounter Care Teams Gas Plant Worker Relationship Specialty Start Date End Date Abare, Holland J, MD [address] [place] PCP - General 02/17/19 documented as of this encounter
--- OUTSIDE RECORDS SUMMARY | 2025-04-05 12:49 | XMS_ITS | Clinical Summary ---
Author Organization [facility] Prior to 09/12/24 Address [address] [place] [address] Care Team Providers Care Refinery Technician Name Role Phone Js VILLANUEVA MD, Holland Griffin Primary Care Provider [phone] Allergies Active Allergy Reactions Criticality Noted Date Comments Amoxicillin-Pot Clavulanate Diarrhea 03/31/20 19 Iodinated Contrast Media Hives 09/28/2022 Medications Medication Sig Dispensed Refills Start Date End Date Status amLODIPine-benazepr il (LOTREL 5-10) 5-10 MG per capsule Take 1 capsule by mouth. 0 Active buprenorphine HCl-naloxone HCl 8-2 mg (SUBOXONE) sublingual film TAKE 1 FILM SUBLINGUALLY EVERY DAY 0 09/05/2022 Active ferrous sulfate 325 (65 FE) MG tablet ferrous sulfate 325 mg (65 mg iron) tablet TAKE 1 TABLET BY MOUTH 1 TIME EACH DAY WITH BREAKFAST. 0 10/23/2021 Active vitamin D3 (CHOLECALCIFEROL) 1.25 MG (91232 UT) CAPS capsule TAKE 1 CAPSULE BY MOUTH EVERY SATURDAY AND SATURDAY 0 07/27/2022 Active DULoxetine (CYMBALTA) DR capsule 60 mg Take 1 capsule (60 mg total) by mouth daily. 0 09/24/2022 Active clonazePAM (KlonoPIN) 1 MG tablet Take 1.5 mg by mouth. 0 Act jerry OXcarbazepine (TRILEPTAL) 150 MG tablet oxcarbazepine 150 mg tablet TAKE 2 TABLETS BY MOUTH EVERY DAY AT BEDTIME 0 07/09/2022 Active sertraline (ZOLOFT) 25 MG tablet sertraline 25 mg tablet TAKE 1 TABLET BY MOUTH ONCE A DAY 0 07/26/2022 Active rOPINIRole (REQUIP) 0.5 MG tablet ropinirole 0.5 mg tablet PLEASE SEE ATTACHED FOR DETAILED DIRECTIONS 0 Active hydrOXYzine (ATARAX) 50 MG tablet Take 1 tablet (50 mg total) by mouth every night at bedtime as needed. for insomnia 0 09/24/2022 Active traZODone (DESYREL) 50 MG tablet trazodone 50 mg tablet TAKE 1 TO 2 TABLETS BY MOUTH DAILY AT BEDTIME 0 Active zolpidem (AMBIEN) 5 MG tablet zolpidem 5 mg tablet TAKE 1 TABLET BY MOUTH EVERYDAY AT BEDTIME 0 Active epoetin nataliya-epbx (Retacrit) 85738 UNIT/ML SOLN injection Retacrit 20,000 unit/mL injection solution 0 11/07/2021 Active Active Problems Problem Noted Date Diagnosed Date Anemia 09/27/2022 Social History Tobacco Use Types Packs/Day Years Used Date Smoking Tobacco: Never Assessed Sex and Gender Information Value Date Recorded Sex Assigned at Female 09/21/2022 4:22 PM EDT Gender Identity Not on file Sexual Orientation Not on file Job Start Date Occupation Industry Not on file Not on file Not on file Last Filed Vital Signs Vital Sign Reading Time Taken Comments Blood Pressure 122/84 02/14/2023 1:21 PM EDT Pulse 73 02/14/2023 1:21 PM EDT Temperature 36.3 C (97.4 F) 02/14/2023 1:21 PM EDT Respiratory Rate 18 02/14/2023 1:21 PM EDT Oxygen Saturation 100% 02/14/2023 1:21 PM EDT ROOM AIR Inhaled Oxygen Concentration - - Weight 41.9 kg (92 lb 6.4 oz) 10/02/2022 2:55 PM EDT Height - - Body Mass Index - - Plan of Treatment Health Maintenance Due Date Last Done Comments Hepatitis C Screening 1965 COVID-19 Vaccine (#1) 1963 Depression Screening 1975 Preventative Health Evaluation 1981 Cervical Cancer Screening (Pap Smear) 1984 Colon Cancer Screening (Colonoscopy) 2008 Breast Cancer Screening (Mammogram) 2013 Shingrix-Zoster Vaccine (2 of 2) 01/02/2022 11/07/2021 Influenza Vaccine (#1) 2024 2, 02/24/2020, 02/18/2019, Additional history exists DTap / Tdap / Td (3 - Td or Tdap) 01/31/2025 01/31/2015, 12/16/2009 RSV Adult > 60+ Yrs or (1 - 1-dose 75+ series) 2038 Pneumococcal Vaccine Aged Out 11/12/2011 No long er eligible based on patient's age to complete this topic Hepatitis B Vaccines Aged Out No long er eligible based on patient's age to complete this topic RSV Ped < 20 months Aged Out No longe r eligible based on patient's age to complete this topic Care Teams Refinery Technician Relationship Specialty Start Date End Date Holland Weinstein II, MD [address] [place] [address] PCP - General Internal Medicine 09/21/22
--- OUTSIDE RECORDS SUMMARY | 2025-04-05 12:49 | XMS_ITS | Encounter Summary ---
Author Organization [facility] [place], Address [address] [place] [address] Phone Care Team Providers Care Communications Technologist Name Role Phone Holland Weinstein MD Primary Care Provider [phone] Encounter Details Date Type Department Care Team (Late st Contact Info) Description 04/11/2022 Documentation Only [facility] [address] [place] [address] Kalia Tamez PA [address] [place] [address] [place] [address] Social History Tobacco Use Types [...] [facility] [address] [place] [address] Romeo Vega MD [address] [place] [address] [place] [phone] documented as of this encounter Visit Diagnoses Not on filedocumented in this encounter Care Teams Communications Technologist Relationship Specialty Start Date End Date Holland Weinstein MD [address] [place] PCP - General 02/17/19 documented as of this encounter
--- OUTSIDE RECORDS SUMMARY | 2025-04-05 12:49 | XMS_ITS | Encounter Summary ---
Author Organization [facility] [place], Address [address] [place] [address] Phone Care Team Providers Care Electric Blasting Cap Assembler Name Role Phone Holland Weinstein MD Primary Care Provider [phone] Encounter Details Date Type Department Care Team (Late st Contact Info) Description 09/18/2022 Documentation Only [facility] [address] [place] [address] Ela Hutson [address] [place] [phone] Social History Tobacco Use Types Packs/Day [...] Visit [facility] [address] [place] [address] Romeo Vega MD [address] [facility] [facility] [place] [address] documented as of this encounter Visit Diagnoses Not on filedocumented in this encounter Care Teams Electric Blasting Cap Assembler Relationship Specialty Start Date End Date Abare, Holland J, MD [address] [place] PCP - General 02/17/19 documented as of this encounter
--- OUTSIDE RECORDS SUMMARY | 2025-04-05 12:49 | XMS_ITS | Encounter Summary ---
Author Organization [facility] [place], Address [address] [place] [address] Phone Care Team Providers Care Sheet Metal Foreman Name Role Phone Holland Weinstein MD Primary Care Provider [phone] Encounter Details Date Type Department Care Team (Late st Contact Info) Description 06/16/2024 Documentation Only [facility] [address] [place] [address] [place] [address] [place] [phone] Social History Tobacco Use Types Packs/Day Years [...] [facility] [address] [place] [address] Romeo Vega MD [address] [facility] [place] [phone] documented as of this encounter Visit Diagnoses Not on filedocumented in this encounter Care Teams Sheet Metal Foreman Relationship Specialty Start Date End Date Holland Weinstein MD [address] [place] PCP - General 02/17/19 documented as of this encounter
--- OUTSIDE RECORDS SUMMARY | 2025-04-05 12:50 | XMS_ITS | Encounter Summary ---
Author Organization [facility] [place], Address [address] [place] [address] Phone Care Team Providers Care Subassembler Name Role Phone Holland Weinstein MD Primary Care Provider [phone] Encounter Details Date Type Department Care Team (Late st Contact Info) Description 11/17/2021 Documentation Only [facility] [address] [place] [address] Kalia Tamez PA [address] [place] [address] [place] [address] Social History Tobacco Use Types [...] Visit [facility] [address] [place] [address] Romeo Vega MD [address] [place] [address] [place] [phone] documented as of this encounter Visit Diagnoses Not on filedocumented in this encounter Care Teams Subassembler Relationship Specialty Start Date End Date Holland Weinstein MD [address] [place] PCP - General 02/17/19 documented as of this encounter
--- OUTSIDE RECORDS SUMMARY | 2025-04-05 12:50 | XMS_ITS | Encounter Summary ---
Author Organization [facility] [place], Address [address] [place] [address] Phone Care Team Providers Care Contractor General Engineering Name Role Phone Holland Weinstein MD Primary Care Provider [phone] Encounter Details Date Type Department Care Team (Late st Contact Info) Description 09/15/2021 Documentation Only [facility] [address] [place] [address] Dave Luz MD [address] [place] [address] [place] [address] Social History Tobacco Use Types [...] Visit [facility] [address] [place] [address] Romeo Vega MD [address] [place] [address] [place] [address] documented as of this encounter Visit Diagnoses Not on filedocumented in this encounter Care Teams Contractor General Engineering Relationship Specialty Start Date End Date Holland Weinstein MD [address] [place] PCP - General 02/17/19 documented as of this encounter
--- OUTSIDE RECORDS SUMMARY | 2025-04-05 12:50 | XMS_ITS | Encounter Summary ---
Author Organization [facility] [place], Address [address] [place] [address] Phone Care Team Providers Care Resource Director Name Role Phone Holland Weinstein MD Primary Care Provider [phone] Encounter Details Date Type Department Care Team (Late st Contact Info) Description 01/13/2024 Documentation Only [facility] [address] [place] [place] [address] Ela Hutson [address] [place] [phone] Social History Tobacco Use Types Packs/Day [...] Visit [facility] [address] [place] [place] [address] Romeo Vega MD [address] [facility] [place] [address] documented as of this encounter Visit Diagnoses Not on filedocumented in this encounter Care Teams Resource Director Relationship Specialty Start Date End Date Abare, Holland J, MD [address] [place] [place] PCP - General 02/17/19 documented as of this encounter
--- OUTSIDE RECORDS SUMMARY | 2025-04-05 12:50 | XMS_ITS | Encounter Summary ---
Author Organization [facility] [place], Address [address] [place] [address] Phone Care Team Providers Care Buhr Mill Operator Name Role Phone Holland Weinstein MD Primary Care Provider [phone] Encounter Details Date Type Department Care Team (Late st Contact Info) Description 01/03/2024 Documentation Only [facility] [address] [facility] [place] [address] Ela Hutson [address] [place] [phone] Social History Tobacco Use Types Packs/Day [...] Visit [facility] [address] [place] [address] Romeo Vega MD [address] [facility] [place] [address] documented as of this encounter Visit Diagnoses Not on filedocumented in this encounter Care Teams Buhr Mill Operator Relationship Specialty Start Date End Date Abare, Holland J, MD [address] [place] [place] PCP - General 02/17/19 documented as of this encounter
--- OUTSIDE RECORDS SUMMARY | 2025-04-05 12:50 | XMS_ITS | Encounter Summary ---
Author Organization [facility] [place], Address [address] [place] [address] Phone Care Team Providers Care Ota Name Role Phone Holland Weinstein MD Primary Care Provider [phone] Encounter Details Date Type Department Care Team (Late st Contact Info) Description 01/08/2024 Documentation Only [facility] [address] [place] [address] [place] [address] [place] [phone] Social History Tobacco Use Types Packs/Day [...] Visit [facility] [address] [place] [address] Romeo Vega MD [address] [facility] [place] [phone] documented as of this encounter Visit Diagnoses Not on filedocumented in this encounter Care Teams Ota Relationship Specialty Start Date End Date Holland Weinstein MD [address] [place] PCP - General 02/17/19 documented as of this encounter
--- OUTSIDE RECORDS SUMMARY | 2025-04-05 12:50 | XMS_ITS | Encounter Summary ---
Author Organization [facility] [place], Address [address] [place] [address] Phone Care Team Providers Care Ex Assistant/Program Director Name Role Phone Holland Weinstein MD Primary Care Provider [phone] Encounter Details Date Type Department Care Team (Late st Contact Info) Description 01/03/2024 Documentation Only [facility] [address] [place] [address] Ela Hutson [address] [place] [phone] Social History Tobacco Use Types Packs/Day [...] Visit [facility] [address] [place] [address] Romeo Vega MD [address] [facility] [place] [address] documented as of this encounter Visit Diagnoses Not on filedocumented in this encounter Care Teams Ex Assistant/Program Director Relationship Specialty Start Date End Date Abare, Holland J, MD [address] [place] PCP - General 02/17/19 documented as of this encounter
[2025-04-05 13:02] VITALS: BP 128/76; PULSE 88; RESP 18; TEMP 36.6; O2SAT 97
== END 2025-04-05 13:02 | disposition home or self-care (01) ==
PROVIDERS: Emergency Provider Emergency Medicine; PCP Family Medicine
DX: S01.01XA Laceration without foreign body of scalp, initial encounter (principal); S49.91XA Unspecified injury of right shoulder and upper arm, initial encounter; S06.0X0A Concussion without loss of consciousness, initial encounter; S89.91XA Unspecified injury of right lower leg, initial encounter; R51.9 Headache, unspecified; M54.2 Cervicalgia; M25.561 Pain in right knee; M25.511 Pain in right shoulder; W10.9XXA Fall (on) (from) unspecified stairs and steps, initial encounter; Y93.01 Activity, walking, marching and hiking; Y92.9 Unspecified place or not applicable; Y99.8 Other external cause status; Z23 Encounter for immunization
CPT/HCPCS: 12001; 70450; 70486; 72125; 73030; 73564; 90471; 90715; 99283; 99284; J2003

== ENCOUNTER → 2025-04-05 10:17 | Outpatient (BNV) | payer MEDICARE, MEDICAID, SELFPAY | PROVIDERS: Emergency Provider Emergency Medicine; PCP Family Medicine; Visit Provider Radiology Diagnostic Ultrasound | DX: M54.2 Cervicalgia (principal); M47.812 Spondylosis without myelopathy or radiculopathy, cervical region; Z98.1 Arthrodesis status; S01.01XA Laceration without foreign body of scalp, initial encounter; M50.30 Other cervical disc degeneration, unspecified cervical region; S00.03XA Contusion of scalp, initial encounter; M25.561 Pain in right knee; M25.511 Pain in right shoulder; M19.011 Primary osteoarthritis, right shoulder; Z04.3 Encounter for examination and observation following other accident | CPT/HCPCS: 70450; 70486; 72125; 73030; 73564 ==